=== PATIENT | male | born 1935 | race Caucasian/White ===

== ENCOUNTER 2024-02-16 23:36 | Inpatient (IN) | payer MEDICARE, SELFPAY ==
--- NOTE | ~2024-02-16 | CT_ITS ---
EXAMINATION: CT CERVICAL SPINE WITHOUT CONTRAST; UNENHANCED CT OF THE HEAD. CLINICAL INFORMATION: Fall. Altered mental status. COMPARISON: CT head 06/13/2016. MRI brain 06/13/2016. TECHNIQUE: Routine unenhanced CT of the head with multiple coronal and sagittal reformatted images; routine unenhanced CT of the cervical spine with multiple coronal and sagittal reformatted images. This CT examination was performed using dose optimization techniques as appropriate, variously including the following: *Automated exposure control *Adjustment of mA and/or kV according to patient size (this includes techniques or standardized protocols for targeted exams where dose is matched to indication/reason for exam; i.e. extremities or head) *Use of iterative reconstruction technique DLP: 1514 mGy-cm FINDINGS: CT head: No intracranial hemorrhage, tumors or acute infarcts identified. Moderate diffuse symmetric prominence of ventricles and sulci. Confluent subcortical and periventricular white matter patchy hypodensities. Bilateral ocular lens replacements. No extra cranial soft tissue inflammatory changes. No significant opacification of the visualized paranasal sinuses, mastoid air cells and middle ear cavities. CT cervical spine: Diffuse osteopenia. Moderate multilevel facet hypertrophic changes. No fractures or acute-appearing subluxations. No prevertebral fluid or soft tissue inflammatory changes. Right internal carotid artery stent noted. Dense bilateral carotid bulb calcific atherosclerosis. Visualized lung apices are clear. CT/CT cervical spine wo IV con IMPRESSION: CT HEAD: 1. No acute intracranial abnormalities. 2. Moderate diffuse parenchymal volume loss the brain and advanced chronic microangiopathic ischemic changes. CT CERVICAL SPINE: 1. No acute abnormalities. 2. Diffuse osteopenia. 3. Right internal carotid artery stent in situ. Electronically signed by: Ronald Loza MD 02/17/2024 01:26 AM [facility]
--- NOTE | ~2024-02-16 | XR_ITS ---
EXAMINATION: XR CHEST 1 VIEW, XR HIP 2 OR MORE VIEWS BILATERAL CLINICAL INFORMATION: sob fall. COMPARISON: Chest 06/13/2016. TECHNIQUE: AP pelvis, repeat AP pelvis, AP and lateral radiographs of the left and right hips; AP and repeat AP radiographs of the chest. FINDINGS: Chest: Multiple external artifacts overlie the thorax. No focal pulmonary consolidation. No effusions or pneumothoraces identified. Normal pattern of pulmonary vasculature. Partial visualization is made of a vascular stents possibly related to the abdominal aorta. No effusions or pneumothoraces identified. No displaced rib Hips and pelvis: Images are suboptimal secondary to underpenetrated technique. Diffuse vascular calcifications are identified. Visualized pelvis appears intact. The sacrum appears intact. Partial visualization is made of the distal portions of a presumed aortobifemoral stent graft. Visualized pelvis appears intact. Visualized hips appear intact. XR/XR chest 1V IMPRESSION: Chest: No acute cardiopulmonary abnormalities. Hips and pelvis: 1. Partially visualized aortobifemoral stent graft. 2. Diffuse vascular calcifications. 3. No acute abnormalities identified. Electronically signed by: Ronald Loza MD 02/17/2024 02:07 AM [facility]
--- NOTE | ~2024-02-16 | US_ITS ---
EXAMINATION: US TRIPLEX UPPER EXTREMITY, RIGHT CLINICAL INFORMATION: Swelling and pain. COMPARISON: None available. TECHNIQUE: Color-flow triplex imaging with spectral analysis and compression Doppler was performed on the right upper extremity. FINDINGS: *Occlusive thrombus is noted within the proximal segment of the right basilic vein. This region demonstrates no measurable flow on spectral and color Doppler interrogation and is incompressible. *Occlusive thrombus is noted within the cephalic vein adjacent to the proximal humerus with no measurable color and spectral flow. Normal color, grayscale and spectral flow is noted elsewhere within the left upper extremity and within the left internal jugular vein. No abnormal soft tissue fluid collections identified. No soft tissue inflammatory changes noted. US/US venous duplex UE RT IMPRESSION: Right upper extremity venous ultrasonography positive for deep venous thrombosis. Occlusive thrombus within the proximal right basilic vein and proximal right cephalic vein. Normal appearance of the visualized left internal jugular vein. This critical result was discussed with Carolyn Larkin MD MD by telephone at 02/17/2024 3:21 AM EST and it was ascertained that the content and urgency of the report was understood at the time of direct communication. Electronically signed by: Ronald Loza MD 02/17/2024 03:22 AM EST
--- NOTE | ~2024-02-16 | CT_ITS ---
EXAMINATION: CT CERVICAL SPINE WITHOUT CONTRAST; UNENHANCED CT OF THE HEAD. CLINICAL INFORMATION: Fall. Altered mental status. COMPARISON: CT head 06/13/2016. MRI brain 06/13/2016. TECHNIQUE: Routine unenhanced CT of the head with multiple coronal and sagittal reformatted images; routine unenhanced CT of the cervical spine with multiple coronal and sagittal reformatted images. This CT examination was performed using dose optimization techniques as appropriate, variously including the following: *Automated exposure control *Adjustment of mA and/or kV according to patient size (this includes techniques or standardized protocols for targeted exams where dose is matched to indication/reason for exam; i.e. extremities or head) *Use of iterative reconstruction technique DLP: 1514 mGy-cm FINDINGS: CT head: No intracranial hemorrhage, tumors or acute infarcts identified. Moderate diffuse symmetric prominence of ventricles and sulci. Confluent subcortical and periventricular white matter patchy hypodensities. Bilateral ocular lens replacements. No extra cranial soft tissue inflammatory changes. No significant opacification of the visualized paranasal sinuses, mastoid air cells and middle ear cavities. CT cervical spine: Diffuse osteopenia. Moderate multilevel facet hypertrophic changes. No fractures or acute-appearing subluxations. No prevertebral fluid or soft tissue inflammatory changes. Right internal carotid artery stent noted. Dense bilateral carotid bulb calcific atherosclerosis. Visualized lung apices are clear. CT/CT head/brain wo IV con IMPRESSION: CT HEAD: 1. No acute intracranial abnormalities. 2. Moderate diffuse parenchymal volume loss the brain and advanced chronic microangiopathic ischemic changes. CT CERVICAL SPINE: 1. No acute abnormalities. 2. Diffuse osteopenia. 3. Right internal carotid artery stent in situ. Electronically signed by: Ronald Loza MD 02/17/2024 01:26 AM EST
--- NOTE | ~2024-02-16 | XR_ITS ---
EXAMINATION: XR CHEST CLINICAL INFORMATION: change of status - COMPARISON: X-ray dated February 17, 2024 TECHNIQUE: Frontal view of the chest was obtained. FINDINGS: Limited due to patient's positioning with cardiomediastinal silhouette overlapping the left hemithorax. No gross consolidation pleural effusion or pneumothorax. Calcified plaque aortic arch. Multilevel thoracic spondylosis. Osteopenia versus osteoporosis. XR/XR chest 1V IMPRESSION: Limited without acute airspace disease. Electronically signed by: Ricki Gusman MD 02/22/2024 09:53 AM [facility] IVE[facility]
--- NOTE | ~2024-02-16 | XR_ITS ---
EXAMINATION: XR CHEST 1 VIEW, XR HIP 2 OR MORE VIEWS BILATERAL CLINICAL INFORMATION: sob fall. COMPARISON: Chest 06/13/2016. TECHNIQUE: AP pelvis, repeat AP pelvis, AP and lateral radiographs of the left and right hips; AP and repeat AP radiographs of the chest. FINDINGS: Chest: Multiple external artifacts overlie the thorax. No focal pulmonary consolidation. No effusions or pneumothoraces identified. Normal pattern of pulmonary vasculature. Partial visualization is made of a vascular stents possibly related to the abdominal aorta. No effusions or pneumothoraces identified. No displaced rib Hips and pelvis: Images are suboptimal secondary to underpenetrated technique. Diffuse vascular calcifications are identified. Visualized pelvis appears intact. The sacrum appears intact. Partial visualization is made of the distal portions of a presumed aortobifemoral stent graft. Visualized pelvis appears intact. Visualized hips appear intact. XR/XR hips GALO min 3V IMPRESSION: Chest: No acute cardiopulmonary abnormalities. Hips and pelvis: 1. Partially visualized aortobifemoral stent graft. 2. Diffuse vascular calcifications. 3. No acute abnormalities identified. Electronically signed by: Ronald Loza MD 02/17/2024 02:07 AM [facility]
--- NOTE | ~2024-02-16 | US_ITS ---
EXAMINATION: US RETROPERITONEAL COMPLETE (RENAL) CLINICAL INFORMATION: Hematuria. COMPARISON: None available. TECHNIQUE: Real-time imaging of the kidneys and bladder. FINDINGS: RIGHT KIDNEY: 8.4 x 4.7 x 4 cm (SAG x AP x TRV). The right kidney is normal in size and contour. Increased parenchymal echogenicity. Renal cortical thinning. No calculi or focal parenchymal lesions. No hydronephrosis. LEFT KIDNEY: 10.5 x 5.2 x 3.9 cm (SAG x AP x TRV). The left kidney is normal in size and contour. Increased parenchymal echogenicity. Renal cortical thinning. No calculi or focal parenchymal lesions. No hydronephrosis. BLADDER: Well distended and normal. Bilateral ureteral jets are not demonstrated. Prevoid bladder volume is 670 mL. Postvoid bladder volume is 476.7 mL. Partially visualized prostate. US/US retroperitoneal comp IMPRESSION: 1. Increased renal parenchymal echogenicity and renal cortical thinning, which can be seen in the setting of medical renal disease. No hydronephrosis or nephrolithiasis. 2. Sonographically unremarkable urinary bladder. Postvoid residual of 476.7 mL. Electronically signed by: Waylon Thomas MD 02/21/2024 09:44 AM EST
--- NOTE | 2024-02-16 23:39 | ECG_ITS ---
Test Reason : FALL Blood Pressure : / mmHG Vent. Rate : 122 BPM Atrial Rate : 000 BPM P-R Int : 000 ms QRS Dur : 112 ms QT Int : 340 ms P-R-T Axes : 000 263 024 degrees QTc Int : 484 ms Atrial flutter with variable block Right bundle branch block Inferior infarct , age undetermined Abnormal ECG When compared with ECG of 13-JUN-2016 05:19, Atrial flutter has replaced Sinus rhythm Vent. rate has increased BY 58 BPM Right bundle branch block is now Present Inferior infarct is now Present Referred By: Generic ED Physician Electronically Signed By:West Fang
[2024-02-16 23:54] VITALS: BP 103/71; PULSE 126; O2SAT 90; BMI 29.8
[2024-02-17] VITALS (14 sets, daily range): BP systolic 125–188; BP diastolic 69–95; PULSE 83–116; RESP 17–36; TEMP 36–37.2; O2SAT 91–97; BMI 32.2
[2024-02-17] MEDS: Albuterol Sulfate (0.083%) 2.5 MG/3 ML VIAL.NEB 10 MG INHALE (00:08)
--- NOTE | 2024-02-17 00:08 | ED_ITS ---
HPI - General Adult General Chief complaint: General Medical Stated complaint: unwit fall?, A&O=0 combative, Time Seen by Provider: 02/16/24 23:56 Source: EMS Mode of arrival: EMS Limitations: other (Hard of hearing, dementia) History of Present Illness ED Provider: Dr. Carolyn Larkin HPI narrative: Patient comes to the emergency room via ambulance from home. According to EMS, the family called 911 for a wellness check for the patient. The last time that patient was seen well was over 2 days ago. Seems that patient has history of dementia. When EMS arrived with fire department to the patient's house, they had to break the door open to get to the patient. Patient was found on the floor beside his wheelchair. Patient is very hard of hearing and has altered mental status, unclear how long he has been on the floor. Patient is very hard of hearing and can not answer any questions. Patient can not answer questions about his past medical history. Per EMS, there were no medications at home and there was no list of meds. Unknown past medical history, possible dementia. Related Data Allergies Allergy/AdvReac Type Severity Reaction Status Date / Time penicillin V Allergy Unknown Unknown Verified 02/17/24 00:00 Penicillins [PENICILLINS] Allergy Unknown UNKNOWN Verified 02/17/24 00:00 Review of Systems 2 Review of Systems: Yes Unobtainable due to mental status PMFSH Social History Social History Unable to assess alcohol history related to: Unknown Smoked in Last 30 Days: No Use of substances other than those prescribed or required for medical reasons: Unknown Advance Directives: No Advance Directives Information Provided: Yes Do you have a plan to hurt others: No Plan Physical Exam ED Vital Signs: Vital Signs - 24 hr 02/17/24 00:09 02/17/24 00:17 02/17/24 00:22 Temperature 98.1 F 98.9 F Pulse Rate 112 H 116 H Respiratory Rate 34 H 36 H Blood Pressure 125/87 Pulse Oximetry 91 L Oxygen Delivery Method Room Air Oxygen Flow Rate 02/17/24 01:06 Temperature Pulse Rate 95 Respiratory Rate 20 Blood Pressure 148/83 H Pulse Oximetry 96 Oxygen Delivery Method Nasal Cannula Oxygen Flow Rate 2 BMI result Body Mass Index 29.8 Const Other: Appearance: Alert. Oriented X1. Disheveled, strong smell of urine Eyes: Pupils equal, round and reactive to light. ENT: Pharynx normal. Neck: Normal inspection. Neck supple. No lymph nodes noted. No crepitus CVS: Normal heart rate and rhythm. Pulses normal. Normal S1 and S2 Respiratory: No respiratory distress. Bilateral wheezing Abdomen: Soft and nontender. No rigidity. No distention. Skin: Multiple bruises worse in the upper extremities Extremities: Right upper extremity is swollen, ecchymosis, +3 edema Neuro: CN 2 through 12 grossly intact Psych: calm, anxious Course Course Course Narrative: All of patient's labs and imaging pending. -patient is wheezing quite a bit, patient receiving albuterol, steroids. -also, patient noted on EKG that he is in atrial fibrillation with RVR. Unknown if patient is on any blood thinners. -our system is not linked to any of the patient's pharmacy, unknown which medication patient takes Medications Administered Generic Name Dose Route Start Last Admin Trade Name Freq PRN Reason Stop Dose Admin Sodium Chloride 2,000 mls @ 999 mls/hr 02/17/24 01:48 02/17/24 02:10 Ns IVCONT 02/17/24 03:48 999 mls/hr .Q2H1M ONE Administration Discontinued Medications Generic Name Dose Route Start Last Admin Trade Name Freq PRN Reason Stop Dose Admin Albuterol Sulfate 10 mg 02/17/24 00:02 02/17/24 00:08 Albuterol Sulfate (0.083%) 2.5 Mg/3 Ml Vial.Neb INHALE 02/17/24 00:03 10 mg ONCE ONE Administration Ceftriaxone Sodium 1 gm 02/17/24 01:48 02/17/24 02:09 Ceftriaxone Sodium 1 Gm Vial IVPUSH 02/17/24 01:49 1 gm ONCE ONE Administration Sodium Chloride 1,000 mls @ 999 mls/hr 02/17/24 00:03 02/17/24 02:10 Ns IVCONT 02/17/24 01:03 Infused .Q1H1M ONE Infusion Methylprednisolone Sodium Succinate 125 mg 02/17/24 00:02 02/17/24 01:01 Methylprednisolone Sod Succ 125 Mg/2 Ml Vial IVPUSH 02/17/24 00:03 125 mg ONCE ONE Administration Metoprolol Tartrate 5 mg 02/17/24 00:08 02/17/24 01:01 Metoprolol Tartrate 5 Mg/5 Ml Vial IVPUSH 02/17/24 00:09 5 mg ONCE ONE Administration Protocol Medical Decision Making Medical Decision Making [facility] Narrative: My interpretation of EKG: Atrial fibrillation with RVR, heart rate 122, no ST changes, QTC 484 -my interpretation of labs. Patient's hemoglobin 18.1, hematocrit 52.6, patient likely dehydrated. Patient's kidney 1.81, unclear if this is new or not. Lactic acid 3.3. Patient is likely dehydrated. -troponin 41.7, likely secondary to being in AFib -patient received 5 mg of IV metoprolol, patient's heart rate decreased to 79, blood pressure 152/64. Unclear if patient has history of AFib. -ultrasound shows a DVT in the cephalic and basilic vein. Patient was given IV heparin. -head CT and neck CT do not show any acute abnormality -DVT study for right upper extremity positive for deep venous thrombosis, occlusive thrombus in the right basilic vein and proximal right cephalic vein -chest x-ray no acute abnormality -hips and pelvis x-ray no acute abnormalities -patient is being admitted, discussed the patient with Dr. Ramirez Differential Diagnosis Differential Diagnoses: The differential diagnosis associated with the presentation includes (Mechanical fall, atrial fibrillation, ACS, UTI) Admission/Observation Consideration of admission/observation: Escalation of care including admission/observation considered (Given patient's initial presentation and lack of medical history, patient will be admitted) Consult Healthcare Provider Management of the patient was discussed with: Hospitalist Lab Data [facility] Lab Attestation statement: I reviewed the patient's lab results. 02/17/24 00:15 02/17/24 00:15 Labs: Lab Results 02/17/24 02/17/24 02/17/24 Range/Units 00:15 00:23 00:54 WBC 10.5 (4.8-10.8) X10*3/uL RBC 5.33 (4.60-5.80) X10*6/uL Hgb 18.1 H (14.0-18.0) g/dl Hct 52.6 H (42.0-52.0) % MCV 98.7 H (80.0-98.0) fL MCH 34.0 H (27.0-33.0) pg MCHC 34.4 (31.0-36.0) g/dl RDW 15.5 (11.0-16.0) % Plt Count 256 (160-400) X10*3/uL MPV 10.0 (9.4-12.4) fL Immature Gran % (Auto) 0.6 H (0.0-0.4) % Neut % (Auto) 66.8 (45-73) % Lymph % (Auto) 18.3 L (20-40) % Harris % (Auto) 13.4 H (2-11) % Eos % (Auto) 0.5 (0-4) % Baso % (Auto) 0.4 (0-2) % Lymph # (Auto) 1.9 (1.2-4.9) X10*3/uL Harris # (Auto) 1.4 H (0.1-1.2) X10*3/uL Eos # (Auto) 0.1 (0.0-0.4) X10*3/uL Baso # (Auto) 0.0 (0.0-0.2) X10*3/uL Abs Immat Gran (auto) 0.06 H (0.00-0.03) X10*3/uL Absolute Neuts (auto) 7.0 (2.0-8.3) x10*3/uL Absolute Nucleated RBC 0.000 (0.0-0.012) X10*3/uL Nucleated RBC % (auto) 0.0 (0.0-0.2) /100WBC PT 13.4 H (10.9-12.4) SEC INR 1.2 H (0.9-1.1) APTT 28.8 (26.0-36.8) SEC VBG pH 7.33 (7.32-7.43) VBG pCO2 45 mmHg VBG pO2 42 mmHg VBG HCO3 24 (22-26) mmol/L VBG O2 Saturation 62.0 % VBG Base Excess -2.0 mmol/L Sodium 146 H (135-145) mmol/L Potassium 4.8 (3.3-5.1) mmol/L Chloride 108 (96-108) mmol/L Carbon Dioxide 23 (22-29) mmol/L Anion Gap 20 (12-20) BUN 48 H (9-16) mg/dL Creatinine 1.81 H (0.5-1.4) mg/dL Estim Creat Clear Calc 34.4 Estimated GFR 36 Random Glucose 161 H (60-115) mg/dL Lactic Acid 3.3 H* (0.5-2.0) mmol/L Lactic Acid F/U @ 2Hr (0.5-2.0) mmol/L Calcium 10.2 (8.4-10.2) mg/dL Magnesium 2.1 (1.6-2.6) mg/dL Total Bilirubin 1.2 H (0.0-1.0) mg/dL Direct Bilirubin 0.5 (0.0-0.5) mg/dL AST 49 H (5-37) U/L ALT 19 (0-40) U/L Alkaline Phosphatase 91 (39-117) U/L Ammonia 33 (13-55) umol/L Total Creatine Kinase 597 H (38-174) U/L Troponin I High Sens 41.7 H (<3.5-35.0) ng/L B-Natriuretic Peptide 46 (<100) pg/mL Total Protein 7.7 (6.5-8.0) g/dL Albumin 3.7 (3.5-5.0) g/dL Lipase 12 (8-78) U/L TSH 1.23 (0.32-4.0) uIU/mL Urine Color Yellow Urine Appearance Turbid Urine pH 5.5 (5.0-9.0) Ur Specific [place] 1.015 (1.005-1.025) Urine Protein 100 (2+) H (Neg-Trace) mg/dL Urine Glucose (UA) Negative (Negative) mg/dL Urine Ketones 15 (Negative) mg/dL Urine Blood Large (3+) H (Negative) Urine Nitrite Positive H (Negative) Ur Leukocyte Esterase Large (3+) H (Negative) Urine RBC >20 H (0-2) /HPF Urine WBC >50 H (0-5) /HPF Ur Squamous Epith Cells 0-2 (0-2) /HPF Urine Bacteria 4+ (None Seen) Hyaline Casts 0-2 (0-2) /LPF Urine Opiates Screen Not Detected (Not Detect) Ur Buprenorphine Scrn Not Detected (Not Detect) ng/mL Ur Oxycodone Screen Not Detected (Not Detect) ng/mL Urine Methadone Screen Not Detected (Not Detect) ng/mL Urine Fentanyl Screen Not Detected (Not Detect) Ur Barbiturates Screen Not Detected (Not Detect) Ur Phencyclidine Scrn Not Detected (Not Detect) Ur Amphetamines Screen Not Detected (Not Detect) U Benzodiazepines Scrn Not Detected (Not Detect) Urine Cocaine Screen Not Detected (Not Detect) U Marijuana (THC) Screen Not Detected (Not Detect) Ethyl Alcohol < 10 mg/dL COVID-19 ([facility]) Negative (Negative) COVID-19 Clin Com See Note 02/17/24 Range/Units 03:12 WBC (4.8-10.8) X10*3/uL RBC (4.60-5.80) X10*6/uL Hgb (14.0-18.0) g/dl Hct (42.0-52.0) % MCV (80.0-98.0) fL MCH (27.0-33.0) pg MCHC (31.0-36.0) g/dl RDW (11.0-16.0) % Plt Count (160-400) X10*3/uL MPV (9.4-12.4) fL Immature Gran % (Auto) (0.0-0.4) % Neut % (Auto) (45-73) % Lymph % (Auto) (20-40) % Harris % (Auto) (2-11) % Eos % (Auto) (0-4) % Baso % (Auto) (0-2) % Lymph # (Auto) (1.2-4.9) X10*3/uL Harris # (Auto) (0.1-1.2) X10*3/uL Eos # (Auto) (0.0-0.4) X10*3/uL Baso # (Auto) (0.0-0.2) X10*3/uL Abs Immat Gran (auto) (0.00-0.03) X10*3/uL Absolute Neuts (auto) (2.0-8.3) x10*3/uL Absolute Nucleated RBC (0.0-0.012) X10*3/uL Nucleated RBC % (auto) (0.0-0.2) /100WBC PT (10.9-12.4) SEC INR (0.9-1.1) APTT (26.0-36.8) SEC VBG pH (7.32-7.43) VBG pCO2 mmHg VBG pO2 mmHg VBG HCO3 (22-26) mmol/L VBG O2 Saturation % VBG Base Excess mmol/L Sodium (135-145) mmol/L Potassium (3.3-5.1) mmol/L Chloride (96-108) mmol/L Carbon Dioxide (22-29) mmol/L Anion Gap (12-20) BUN (9-16) mg/dL Creatinine (0.5-1.4) mg/dL Estim Creat Clear Calc Estimated GFR Random Glucose (60-115) mg/dL Lactic Acid (0.5-2.0) mmol/L Lactic Acid F/U @ 2Hr 3.7 H* (0.5-2.0) mmol/L Calcium (8.4-10.2) mg/dL Magnesium (1.6-2.6) mg/dL Total Bilirubin (0.0-1.0) mg/dL Direct Bilirubin (0.0-0.5) mg/dL AST (5-37) U/L ALT (0-40) U/L Alkaline Phosphatase (39-117) U/L Ammonia (13-55) umol/L Total Creatine Kinase (38-174) U/L Troponin I High Sens (<3.5-35.0) ng/L B-Natriuretic Peptide (<100) pg/mL Total Protein (6.5-8.0) g/dL Albumin (3.5-5.0) g/dL Lipase (8-78) U/L TSH (0.32-4.0) uIU/mL Urine Color Urine Appearance Urine pH (5.0-9.0) Ur Specific [place] (1.005-1.025) Urine Protein (Neg-Trace) mg/dL Urine Glucose (UA) (Negative) mg/dL Urine Ketones (Negative) mg/dL Urine Blood (Negative) Urine Nitrite (Negative) Ur Leukocyte Esterase (Negative) Urine RBC (0-2) /HPF Urine WBC (0-5) /HPF Ur Squamous Epith Cells (0-2) /HPF Urine Bacteria (None Seen) Hyaline Casts (0-2) /LPF Urine Opiates Screen (Not Detect) Ur Buprenorphine Scrn (Not Detect) ng/mL Ur Oxycodone Screen (Not Detect) ng/mL Urine Methadone Screen (Not Detect) ng/mL Urine Fentanyl Screen (Not Detect) Ur Barbiturates Screen (Not Detect) Ur Phencyclidine Scrn (Not Detect) Ur Amphetamines Screen (Not Detect) U Benzodiazepines Scrn (Not Detect) Urine Cocaine Screen (Not Detect) U Marijuana (THC) Screen (Not Detect) Ethyl Alcohol mg/dL COVID-19 ([facility]) (Negative) COVID-19 Clin Com Independent Interpretation I performed an independent interpretation of an: EKG, Ultrasound and CT Scan Radiology Impression Discussion of test interpretation with radiology: I have reviewed the radiologist's reading. Radiologist Impression: CT head: No intracranial hemorrhage, tumors or acute infarcts identified. Moderate diffuse symmetric prominence of ventricles and sulci. Confluent subcortical and periventricular white matter patchy hypodensities. Bilateral ocular lens replacements. No extra cranial soft tissue inflammatory changes. No significant opacification of the visualized paranasal sinuses, mastoid air cells and middle ear cavities. CT cervical spine: Diffuse osteopenia. Moderate multilevel facet hypertrophic changes. No fractures or acute-appearing subluxations. No prevertebral fluid or soft tissue inflammatory changes. Right internal carotid artery stent noted. Dense bilateral carotid bulb calcific atherosclerosis. Visualized lung apices are clear. Right upper extremity venous ultrasonography positive for deep venous thrombosis. Occlusive thrombus within the proximal right basilic vein and proximal right cephalic vein. Normal appearance of the visualized left internal jugular vein. This critical result was discussed with Carolyn Larkin MD MD by telephone at 02/17/2024 3:21 AM EST and it was ascertained that the content and urgency of the report was understood at the time of direct communication. Chest: No acute cardiopulmonary abnormalities. Hips and pelvis: 1. Partially visualized aortobifemoral stent graft. 2. Diffuse vascular calcifications. 3. No acute abnormalities identifie Independent Historian Clinical information obtained from an independent historian. History obtained from or confirmed by: EMS Critical Care Time Critical Care Time Critical Care Time: Yes Total Critical Care Time: 75 Attestation: I have personally provided critical care time. Time includes review of lab data, radiology results, discussion with consultants, and monitoring for potential decompensation. Intervention performed as documented. Discharge Plan Discharge Clinical Impression: Atrial fibrillation with RVR, Acute UTI, Acute deep vein thrombosis (DVT) of right upper extremity, JOSE ALFREDO (acute kidney injury) Patient Disposition: Admitted As Inpatient Print Language: Serbian
[2024-02-17] MEDS: 0.9 % Sodium Chloride 1,000 ML 999 ML IVCONT (00:19)
[2024-02-17 00:21] LABS: MANUAL DIFF FLAG NO
[2024-02-17 00:23] LABS: Venous Blood Gas Refer to POC result
[2024-02-17 00:23] LABS: Basophils Percent Auto 0.4 % (0-2); Eosinophils Absolute Auto 0.1 X10*3/uL (0.0-0.4); Eosinophils Percent Auto 0.5 % (0-4); Hematocrit 52.6 % (42.0-52.0); Hemoglobin 18.1 g/dl (14.0-18.0); Imm Gran Abs Auto 0.06 X10*3/uL (0.00-0.03); Imm Gran Pct Auto 0.6 % (0.0-0.4); Lymphocytes Absolute Auto 1.9 X10*3/uL (1.2-4.9); Lymphocytes Percent Auto 18.3 % (20-40); Mean Corpuscular HGB Conc 34.4 g/dl (31.0-36.0); Mean Corpuscular Volume 98.7 fL (80.0-98.0); Monocytes Absolute Auto 1.4 X10*3/uL (0.1-1.2); Monocytes Percent Auto 13.4 % (2-11); Neutrophils Percent Auto 66.8 % (45-73); Platelet Count 256 X10*3/uL (160-400); Red Blood Count 5.33 X10*6/uL (4.60-5.80); Red Cell Distribution Width 15.5 % (11.0-16.0); White Blood Count 10.5 X10*3/uL (4.8-10.8)
[2024-02-17 00:27] LABS: VBG HCO3 24 mmol/L (22-26); VBG pCO2 45 mmHg; VBG pH 7.33 (7.32-7.43); VBG pO2 42 mmHg
[2024-02-17 00:28] LABS: INTERNATIONAL NORM RATIO 1.2 (0.9-1.1); Prothrombin Time 13.4 SEC (10.9-12.4)
[2024-02-17 00:30] LABS: Ammonia 33 umol/L (13-55)
[2024-02-17 00:40] LABS: Lactic Acid 3.3 mmol/L (0.5-2.0)
[2024-02-17 00:44] LABS: Troponin-I High Sensitivity 41.7 ng/L (<3.5-35.0)
[2024-02-17 00:45] LABS: B Type Natriuretic Peptide 46 pg/mL (<100)
[2024-02-17 00:48] LABS: Alanine Aminotransferase 19 U/L (0-40); Albumin Level 3.7 g/dL (3.5-5.0); Alkaline Phosphatase 91 U/L (39-117); Anion Gap 20 (12-20); Aspartate Amino Transferase 49 U/L (5-37); Bilirubin Direct 0.5 mg/dL (0.0-0.5); Bilirubin Total 1.2 mg/dL (0.0-1.0); Blood Urea Nitrogen 48 mg/dL (9-16); Calcium 10.2 mg/dL (8.4-10.2); Carbon Dioxide 23 mmol/L (22-29); Chloride 108 mmol/L (96-108); Creatinine Clr Calc Pharmacy 34.4; Estimated Glomerular Filt Rate 36; Ethanol < 10 mg/dL; Glucose Random 161 mg/dL (60-115); Lipase 12 U/L (8-78); Magnesium 2.1 mg/dL (1.6-2.6); Potassium 4.8 mmol/L (3.3-5.1); Sodium 146 mmol/L (135-145); Total Protein 7.7 g/dL (6.5-8.0)
[2024-02-17 01:00] LABS: COVID-19 Test Negative (Negative); IDNOW Serial# 6674DD1D
[2024-02-17 01:01] LABS: Appearance Urine Turbid; Color Urine Yellow; Glucose Urine UA Negative (Negative); Leukocyte Esterase Urine Large (3+) (Negative); Nitrite Urine Positive (Negative); PH 5.5 (5.0-9.0); Specific Gravity - Urine 1.015 (1.005-1.025); UMIC TRIGGER UACC YES; Urine Blood Large (3+) (Negative); Urine Ketones 15 mg/dL (Negative); Urine Protein 100 (2+) mg/dL (Neg-Trace)
[2024-02-17 01:01] LABS: TSH reflex Free T4 1.23 uIU/mL (0.32-4.0)
[2024-02-17] MEDS: methylPREDNISolone Sod Succ 125 MG/2 ML VIAL IVPUSH (01:01)
[2024-02-17] MEDS: Metoprolol Tartrate 5 MG/5 ML VIAL IVPUSH (01:01)
[2024-02-17 01:06] LABS: Bacteria Urine 4+ (None Seen); Hyaline Casts Urine 0-2 /LPF (0-2); RBC Urine >20 /HPF (0-2); Squamous Epithelial Cell Urine 0-2 /HPF (0-2); UACC Culture Trigger YES; WBC Urine >50 /HPF (0-5)
[2024-02-17 01:17] LABS: Amphetamine Screen Urine Not Detected (Not Detect); Barbiturates, Urine Not Detected (Not Detect); Benzodiazepines Screen Urine Not Detected (Not Detect); Buprenorphine Scr Not Detected (Not Detect); Cannabinoid Screen Urine Not Detected (Not Detect); Cocaine Screen Urine Not Detected (Not Detect); Fentanyl, urine Not Detected (Not Detect); Methadone Screen, Urine Not Detected (Not Detect); Opiate Screen Urine Not Detected (Not Detect); Oxycodone Screen Urine Not Detected (Not Detect); Phencyclidine Screen Urine Not Detected (Not Detect)
[2024-02-17] MEDS: cefTRIAXone sodium 1 GM VIAL IVPUSH ×2 (02:09→20:26)
[2024-02-17] MEDS: 0.9 % Sodium Chloride 2,000 ML 999 ML IVCONT (02:10)
[2024-02-17 02:19] LABS: Reflex Lactate? Lactic Acid Added
[2024-02-17 03:32] LABS: Partial Thromboplastin Time 28.8 SEC (26.0-36.8)
[2024-02-17 03:36] LABS: ~Lactic Acid-LAB USE ONLY 3.7 mmol/L (0.5-2.0)
[2024-02-17] MEDS: Heparin Sodium,Porcine/1/2NS 25,000 UNIT/250 ML IV.SOLN 13.96 UNIT IVCONT ×2 (03:59→20:34)
[2024-02-17 05:16] LABS: Reflex Lactate? 2 Y
--- NOTE | 2024-02-17 05:19 | P.HPHOSP_ITS ---
History of Present Illness Date of Service: 02/17/24 Attending physician on admission: Josué Guy Chief Complaint: Fall Nikita Hays is 88 years old man with past medical history significant for dementia was brought to the ED after his family contacted 911 for a wellness check. The patient well was seen for the last time 2 days ago. Upon entering patient's home it was noted that the patient was lying on the floor and confused. The down time is unclear. Other past medical history is unknown and unclear if patient takes medications everyday. Likely history of PVD as aortic femoral stent noted on hip x-ray. His right arm was noted to be swollen. In the ED, he was found to have tachycardia consistent with rapid AFib. He was also found to have a degree of tachypnea. Other vital signs are normal. It seems like he was placed on supplemental oxygen via nasal cannula for comfort. Blood workup showed no leukocytosis. There is lactic acidosis of 3.3 --> 3.7. Hemoglobin is 18.1 and platelets 256. INR is 1.2. There is mild hypernatremia, 146. No other electrolyte imbalances noted. Total CK is 597. BNP is normal, as well as albumin, lipase and TSH. Urinalysis consistent with UTI. Urine drug screen is negative. ETOH level is < 10. COVID-19 test is negative. Head and C-spine CT scans are unremarkable. CXR is negative. Hip and pelvic x-ray showed partially visualized aortic be femoral stent graft. ED tx: Solu-Medrol 125 mg IV, DuoNeb 10 mg, NS 3 L bolus, metoprolol 5 mg IV, ceftriaxone 1 g IV Review of Systems 2 Review of Systems: Yes Unobtainable due to mental condition and Unobtainable due to mental status PMFSH Social History Unable to assess alcohol history related to: Unknown Smoked in Last 30 Days: No Use of substances other than those prescribed or required for medical reasons: Unknown Advance Directives: No Advance Directives Information Provided: Yes Do you have a plan to hurt others: No Plan Meds Allergies Allergy/AdvReac Type Severity Reaction Status Date / Time penicillin V Allergy Unknown Unknown Verified 02/17/24 00:00 Penicillins [PENICILLINS] Allergy Unknown UNKNOWN Verified 02/17/24 00:00 Active Medications: Current Medications Acetaminophen (Acetaminophen 325 Mg Tablet) 975 mg PO Q6H PRN PRN Reason: Pain, Mild (Pain Scale 1-3), fever or headache Ceftriaxone Sodium (Ceftriaxone Sodium 1 Gm Vial) 1 gm IVPUSH Q24H [facility] Heparin Sodium/Sodium Chloride (Heparin Sodium,Porcine/1/2ns) 25,000 unit in 250 mls @ 0 mls/hr IVCONT .Q0M [facility]; Protocol Last Admin: 02/17/24 03:59 Dose: 14 units/kg/hr, 13.96 mls/hr Dextrose/Sodium Chloride (D51/2ns) 1,000 mls @ 100 mls/hr IVCONT .Q10H [facility] Stop: 02/17/24 15:14 Levalbuterol HCl (Levalbuterol Hcl 1.25 Mg/3 Ml Vial.Neb) 1.25 mg INHALE Q3H PRN PRN Reason: Wheezing Melatonin (Melatonin 3 Mg Tablet) 6 mg PO BEDTIME PRN PRN Reason: Insomnia Metoprolol Tartrate (Metoprolol Tartrate 12.5 Mg Halftab) 12.5 mg PO BID [facility]; Protocol Sodium Chloride (0.9 % Sodium Chloride Flush 3 Ml Syringe) 3 ml IVFLUSH QSHIFT [facility] Physical Exam 2 Vital Signs and Narrative: Vital Signs: Last Vital Signs Temp 97.8 F 02/17/24 04:23 Pulse 86 02/17/24 04:43 Resp 20 02/17/24 04:43 BP 137/95 H 02/17/24 04:43 Pulse Ox 96 02/17/24 04:43 O2 Del Method Nasal Cannula 02/17/24 04:43 O2 Flow Rate 2 02/17/24 04:43 BMI result Body Mass Index 29.8 Constitutional - Sleeping, easily awakened. No distress. Nasal cannula in place. HEENT - PERRL, EOMI. Normal sclerae. Dry oral mucosa. Heart - Irregular rhythm. Normal rate. No murmurs. Lungs - Normal lung expansion, Normal respiratory effort, No respiratory distress, CTA bilaterally Abdomen - NT / ND; +BS; No rebound or guarding Extremities - Right upper erythema and edema. Distal pulses intact. Lower extremities are symmetrical Skin - Warm/Dry. No pallor. No jaundice. Neurological - Confused. No facial droop. No focal weakness grossly noted. Psychological - No agitation. Results Labs 02/17/24 00:15 02/17/24 00:15 Labs: Laboratory Results - last 24 hr 02/17/24 02/17/24 02/17/24 00:15 00:23 00:54 MCV 98.7 H MCH 34.0 H MCHC 34.4 RDW 15.5 Plt Count 256 MPV 10.0 Immature Gran % (Auto) 0.6 H Neut % (Auto) 66.8 Lymph % (Auto) 18.3 L Cataño % (Auto) 13.4 H Eos % (Auto) 0.5 Baso % (Auto) 0.4 Lymph # (Auto) 1.9 Cataño # (Auto) 1.4 H Eos # (Auto) 0.1 Baso # (Auto) 0.0 Abs Immat Gran (auto) 0.06 H Absolute Neuts (auto) 7.0 Absolute Nucleated RBC 0.000 Nucleated RBC % (auto) 0.0 PT 13.4 H INR 1.2 H APTT 28.8 VBG pH 7.33 VBG pCO2 45 VBG pO2 42 VBG HCO3 24 VBG O2 Saturation 62.0 VBG Base Excess -2.0 Anion Gap 20 Estim Creat Clear Calc 34.4 Estimated GFR 36 Random Glucose 161 H Lactic Acid 3.3 H* Lactic Acid F/U @ 2Hr Calcium 10.2 Magnesium 2.1 Total Bilirubin 1.2 H Direct Bilirubin 0.5 AST 49 H ALT 19 Alkaline Phosphatase 91 Ammonia 33 Total Creatine Kinase 597 H Troponin I High Sens 41.7 H B-Natriuretic Peptide 46 Total Protein 7.7 Albumin 3.7 Lipase 12 TSH 1.23 Urine Color Yellow Urine Appearance Turbid Urine pH 5.5 Ur Specific Mouthcard 1.015 Urine Protein 100 (2+) H Urine Glucose (UA) Negative Urine Ketones 15 Urine Blood Large (3+) H Urine Nitrite Positive H Ur Leukocyte Esterase Large (3+) H Urine RBC >20 H Urine WBC >50 H Ur Squamous Epith Cells 0-2 Urine Bacteria 4+ Hyaline Casts 0-2 Urine Opiates Screen Not Detected Ur Buprenorphine Scrn Not Detected Ur Oxycodone Screen Not Detected Urine Methadone Screen Not Detected Urine Fentanyl Screen Not Detected Ur Barbiturates Screen Not Detected Ur Phencyclidine Scrn Not Detected Ur Amphetamines Screen Not Detected U Benzodiazepines Scrn Not Detected Urine Cocaine Screen Not Detected U Marijuana (THC) Screen Not Detected Ethyl Alcohol < 10 COVID-19 ([facility]) Negative COVID-19 Clin Com See Note 02/17/24 03:12 MCV MCH MCHC RDW Plt Count MPV Immature Gran % (Auto) Neut % (Auto) Lymph % (Auto) Cataño % (Auto) Eos % (Auto) Baso % (Auto) Lymph # (Auto) Cataño # (Auto) Eos # (Auto) Baso # (Auto) Abs Immat Gran (auto) Absolute Neuts (auto) Absolute Nucleated RBC Nucleated RBC % (auto) PT INR APTT VBG pH VBG pCO2 VBG pO2 VBG HCO3 VBG O2 Saturation VBG Base Excess Anion Gap Estim Creat Clear Calc Estimated GFR Random Glucose Lactic Acid Lactic Acid F/U @ 2Hr 3.7 H* Calcium Magnesium Total Bilirubin Direct Bilirubin AST ALT Alkaline Phosphatase Ammonia Total Creatine Kinase Troponin I High Sens B-Natriuretic Peptide Total Protein Albumin Lipase TSH Urine Color Urine Appearance Urine pH Ur Specific Mouthcard Urine Protein Urine Glucose (UA) Urine Ketones Urine Blood Urine Nitrite Ur Leukocyte Esterase Urine RBC Urine WBC Ur Squamous Epith Cells Urine Bacteria Hyaline Casts Urine Opiates Screen Ur Buprenorphine Scrn Ur Oxycodone Screen Urine Methadone Screen Urine Fentanyl Screen Ur Barbiturates Screen Ur Phencyclidine Scrn Ur Amphetamines Screen U Benzodiazepines Scrn Urine Cocaine Screen U Marijuana (THC) Screen Ethyl Alcohol COVID-19 ([facility]) COVID-19 Clin Com Imaging Radiologist's Impressions: Impressions Cervical Spine CT 02/17/24 00:03 IMPRESSION: CT HEAD: 1. No acute intracranial abnormalities. 2. Moderate diffuse parenchymal volume loss the brain and advanced chronic microangiopathic ischemic changes. CT CERVICAL SPINE: 1. No acute abnormalities. 2. Diffuse osteopenia. 3. Right internal carotid artery stent in situ. Electronically signed by: Ronald Loza MD 02/17/2024 01:26 AM EST RP Hip X-Ray 02/17/24 00:03 IMPRESSION: Chest: No acute cardiopulmonary abnormalities. Hips and pelvis: 1. Partially visualized aortobifemoral stent graft. 2. Diffuse vascular calcifications. 3. No acute abnormalities identified. Electronically signed by: Ronald Loza MD 02/17/2024 02:07 AM EST RP Chest X-Ray 02/17/24 00:04 IMPRESSION: Chest: No acute cardiopulmonary abnormalities. Hips and pelvis: 1. Partially visualized aortobifemoral stent graft. 2. Diffuse vascular calcifications. 3. No acute abnormalities identified. Electronically signed by: Ronald Loza MD 02/17/2024 02:07 AM EST RP Head CT 02/17/24 01:00 IMPRESSION: CT HEAD: 1. No acute intracranial abnormalities. 2. Moderate diffuse parenchymal volume loss the brain and advanced chronic microangiopathic ischemic changes. CT CERVICAL SPINE: 1. No acute abnormalities. 2. Diffuse osteopenia. 3. Right internal carotid artery stent in situ. Electronically signed by: Ronald Loza MD 02/17/2024 01:26 AM EST RP Venous Duplex 02/17/24 01:48 IMPRESSION: Right upper extremity venous ultrasonography positive for deep venous thrombosis. Occlusive thrombus within the proximal right basilic vein and proximal right cephalic vein. Normal appearance of the visualized left internal jugular vein. This critical result was discussed with Carolyn Larkin MD MD by telephone at 02/17/2024 3:21 AM EST and it was ascertained that the content and urgency of the report was understood at the time of direct communication. Electronically signed by: Ronald Loza MD 02/17/2024 03:22 AM EST RP Assessment and Plan (1) JOSE ALFREDO (acute kidney injury): Status: Acute (2) Acute UTI: Status: Acute (3) Atrial fibrillation with RVR: Status: Acute (4) Acute deep vein thrombosis (DVT) of right upper extremity: Qualifiers: Affected thrombotic vein of extremity: unspecified vein of extremity Q ualified Code(s): I82.621 - Acute embolism and thrombosis of deep veins of right upper extremity Status: Acute Plan Nikita Hays is 88 y/o man with PMHx significant for dementia admitted with: * Acute kidney injury. Likely secondary to poor p.o. intake of fluids. Early rhabdomyolysis (total CK 597)? Medications? Admit to hospitalist service. Continue IV fluids. Continue to monitor total CK and renal function. Check phosphorus and uric acid. Avoid nephrotoxic agents. * Rapid AFib, now rate controlled. Receive metoprolol IV. Unclear if patient has underlying AFib. Continue heparin IV infusion. Start metoprolol tartrate 25 mg PO bid. Check TTE. * Hypernatremia, likely intake of free water. Continue IV fluids with D5. Continue to monitor Na+ level. * Right upper extremity occlusive DVT: Proximal right basilic vein and proximal right cephalic vein . Continue heparin IV infusion per protocol. * Lactic acidosis, tachycardia and tachypnea due to sepsis + UTI. Continue IV fluids and empiric IV antibiotic therapy with ceftriaxone. Blood and urine cultures obtained -will follow results. Continue to monitor lactic acid. * Possible history of PVD. Presence of aortobifemoral stent on hip x-ray. DVT prophylaxis: Heparin IV infusion Code status: Full Patient will need hospitalization for at least 2 midnights for JOSE ALFREDO, hypernatremia, UTI and right upper extremity occlusive DVT treatment with IV fluids, IV antibiotics and heparin IV infusion, respectively. Quality Stroke Does the patient have a stroke diagnosis?: No VTE Prior VTE?: No VTE Risk Level:: Medical - moderate - high VTE Device Contraindication: Treatment Not Indicated VTE Drug Contraindication: N/A - Med Ordered
[2024-02-17 05:25] LABS: Cancel Lactic Acid Canceled
[2024-02-17] MEDS: Dextrose 5 % and 0.45 % NaCl 1,000 ML 100 ML IVCONT (05:37)
[2024-02-17 06:48] LABS: VBG Base Excess -2.8 mmol/L; VBG HCO3 23 mmol/L (22-26); VBG pCO2 44 mmHg; VBG pH 7.32 (7.32-7.43); VBG pO2 90 mmHg
[2024-02-17 06:49] LABS: Basophils Percent Auto 0.2 % (0-2); Hematocrit 47.8 % (42.0-52.0); Hemoglobin 15.8 g/dl (14.0-18.0); Imm Gran Abs Auto 0.05 X10*3/uL (0.00-0.03); Imm Gran Pct Auto 0.5 % (0.0-0.4); Lymphocytes Absolute Auto 0.5 X10*3/uL (1.2-4.9); Lymphocytes Percent Auto 4.8 % (20-40); MANUAL DIFF FLAG SCAN; Mean Corpuscular HGB Conc 33.1 g/dl (31.0-36.0); Mean Corpuscular Hemoglobin 33.1 pg (27.0-33.0); Mean Corpuscular Volume 100.2 fL (80.0-98.0); Mean Platelet Volume 10.1 fL (9.4-12.4); Monocytes Absolute Auto 0.4 X10*3/uL (0.1-1.2); Monocytes Percent Auto 3.8 % (2-11); Neutrophils Absolute Auto 9.3 x10*3/uL (2.0-8.3); Neutrophils Percent Auto 90.7 % (45-73); Platelet Count 226 X10*3/uL (160-400); Red Blood Count 4.77 X10*6/uL (4.60-5.80); Red Cell Distribution Width 15.7 % (11.0-16.0); SCAN SMEAR FLAG 1; White Blood Count 10.3 X10*3/uL (4.8-10.8)
[2024-02-17 06:50] LABS: Venous Blood Gas Refer to POC result
--- NOTE | 2024-02-17 07:01 | PC.NURSE ---
Eport given to Sendy RUST
[2024-02-17 07:18] LABS: SLIDE REVIEW VERIFIED
[2024-02-17 07:43] LABS: ~Lactic Acid-LAB USE ONLY 3.7 mmol/L (0.5-2.0)
[2024-02-17 09:10] LABS: Alanine Aminotransferase 14 U/L (0-40); Anion Gap 17 (12-20); Aspartate Amino Transferase 35 U/L (5-37); Bilirubin Total 0.6 mg/dL (0.0-1.0); Blood Urea Nitrogen 48 mg/dL (9-16); Calcium 8.8 mg/dL (8.4-10.2); Carbon Dioxide 22 mmol/L (22-29); Chloride 112 mmol/L (96-108); Estimated Glomerular Filt Rate 42; Glucose Random 211 mg/dL (60-115); Magnesium 1.8 mg/dL (1.6-2.6); Phosphorus 2.5 mg/dL (2.7-4.5); Potassium 4.2 mmol/L (3.3-5.1); Sodium 147 mmol/L (135-145); Total Protein 6.1 g/dL (6.5-8.0)
[2024-02-17 09:16] LABS: Alkaline Phosphatase 71 U/L (39-117)
--- NOTE | 2024-02-17 11:00 | PHA.MEDREC ---
Pharmacy Consult ? Medication Reconciliation Pharmacy has completed the medication reconciliation. Pt poor historian and the contact within the EMR is out of service. Patient does not have any claim history as well, and [facility] not [facility] in their system. Leaving as no known home meds.
[2024-02-17] MEDS: LORazepam 2 MG/ML VIAL 1 MG IVPUSH (12:41)
[2024-02-17] MEDS: Haloperidol Lactate 5 MG/ML VIAL IM (12:42)
[2024-02-17 13:20] LABS: PTT Heparin Drip 68.3 SEC (53-77.9)
--- NOTE | 2024-02-17 14:22 | PM.EVENT ---
Event Note Date of Service: 02/17/24 Event Note: Chart reviewed. Patient examined. Agree with assessment and plan as outlined by night float. Patient is somewhat agitated this a.m. requiring a dose of Ativan/Haldol with good results. Initial CPKs 597 repeated now 378. Time Spent With Patient Time: Total time managing care of this patient today ____ minutes.
--- NOTE | 2024-02-17 15:09 | MHC.CM.PN ---
This CM attempted to meet with pt, but pt unable to partake in CM intake assessment due to altered mental status. EMR reviewed, no previous hospital visits seen. Pts contact listed is daughter Gissel, this CM placed a call to her at number listed, line was busy with no option of leaving a voicemail. CM will revisit pt at a later time to re-attempt CM intake assessment.
[2024-02-17] MEDS: 0.9 % Sodium Chloride Flush 3 ML SYRINGE IVFLUSH (17:05)
--- NOTE | 2024-02-17 20:01 | HO.SKINPHOTO ---
Location: R Thigh Category: DTI Stage: Length: Width: Depth: cm Location: R Knee Category: Abrasion Stage: Length: Width: Depth: cm Location: Category: Stage: Length: Width: Depth: cm Location: Category: Stage: Length: Width: Depth: cm Location: Category: Stage: Length: Width: Depth: cm Location: Category: Stage: Length: Width: Depth: cm
[2024-02-17] MEDS: vancomycin/NS 2,000 MG/500 ML PLAST..BAG 250 MG IV (20:34)
[2024-02-17 20:43] LABS: PTT Heparin Drip 91.3 SEC (53-77.9)
[2024-02-17 20:56] LABS: Anion Gap 13 (12-20); Blood Urea Nitrogen 46 mg/dL (9-16); Calcium 8.9 mg/dL (8.4-10.2); Carbon Dioxide 22 mmol/L (22-29); Chloride 114 mmol/L (96-108); Creatinine Clr Calc Pharmacy 50.2; Estimated Glomerular Filt Rate 53; Glucose Random 141 mg/dL (60-115); Potassium 4.3 mmol/L (3.3-5.1); Sodium 145 mmol/L (135-145)
[2024-02-17 21:10] LABS: Lactic Acid 2.5 mmol/L (0.5-2.0)
[2024-02-17 22:30] LABS: Reflex Lactate? Lactic Acid Added
[2024-02-17 23:51] LABS: ~Lactic Acid-LAB USE ONLY 2.1 mmol/L (0.5-2.0)
[2024-02-18] VITALS (9 sets, daily range): BP systolic 119–180; BP diastolic 58–93; PULSE 85–109; RESP 16–23; TEMP 36.1–36.8; O2SAT 91–95
[2024-02-18 01:24] LABS: Reflex Lactate? 2 Y
[2024-02-18 02:33] LABS: PTT Heparin Drip 80.5 SEC (53-77.9)
[2024-02-18 02:45] LABS: ~Lactic Acid-LAB USE ONLY 1.5 mmol/L (0.5-2.0)
--- NOTE | 2024-02-18 09:17 | MHC.CM.PN ---
IMM 02/17. Pt awake and able to answer questions, although CAPITAN GRANDE and very fixated on drinking something (pt currently NPO). Per pt, he lives alone at home and cares for himself, has no services or DME, nor any nearby family to help him. Pt states his daughter Gissel now lives in [place]. Pt states he doesn't have a PCP, but [facility] [place] [place] DCP: TBD, and will need assistance with transport at discharge.
[2024-02-18] MEDS: 0.9 % Sodium Chloride Flush 3 ML SYRINGE IVFLUSH ×2 (09:26→16:24)
[2024-02-18] MEDS: Metoprolol Tartrate 12.5 MG HALFTAB PO (09:26)
[2024-02-18 09:33] LABS: PTT Heparin Drip 45.7 SEC (53-77.9)
[2024-02-18 09:58] LABS: Creatinine Clr Calc Pharmacy 57.3; Estimated Glomerular Filt Rate > 60
[2024-02-18] MEDS: Heparin Sodium,Porcine 5,000 UNIT/ML VIAL 4300 UNIT IVPUSH (10:07)
[2024-02-18] MEDS: levalbuterol HCL 1.25 MG/3 ML VIAL.NEB INHALE ×3 (10:35→19:33)
[2024-02-18] MEDS: Apixaban 5 MG TABLET 10 MG PO ×2 (11:56→21:27)
[2024-02-18] MEDS: methylPREDNISolone Sod Succ 40 MG/ML VIAL IVPUSH ×2 (11:56→23:03)
--- NOTE | 2024-02-18 13:07 | P.PNIM_ITS ---
Subjective Subjective Date of Service: 02/18/24 Interval History: Being followed for acute mental status change, JOSE ALFREDO and electrolyte abnormality. Patient unable to recall what happened to him but thinks he was reaching for something and he fell, complaining of shortness of breath and right arm discomfort, and informs that he has childhood asthma that flares from time to time. Unable to recall his medical history or his medications Review of Systems Unable to obtain due to mental status Physical Exam 2 Vital Signs: Vital Signs: Last Vital Signs Temp 98.2 F 02/18/24 11:36 Pulse 99 02/18/24 11:36 Resp 18 02/18/24 11:36 BP 146/72 H 02/18/24 11:36 Pulse Ox 92 02/18/24 11:36 O2 Del Method Room Air 02/18/24 11:36 O2 Flow Rate 2 02/17/24 08:08 BMI result Body Mass Index 32.2 Const: Other: General resting comfortably in no acute distress. Neck no JVD. CVS irregular rate rhythm, Respiratory lungs bilateral expiratory wheeze, no respiratory distress Gastrointestinal abdomen soft, non tender, bowel sounds audible, no guarding , no rigidity. Extremities right upper extremity swollen, erythematous, no warmth Neuro moving all 4 extremity, speech clear. Skin right upper extremity erythema Psych poor insight Objective Data Active Medications Acetaminophen (Acetaminophen 325 Mg Tablet) 975 mg PO Q6H PRN PRN Reason: Pain, Mild (Pain Scale 1-3), fever or headache Apixaban (Apixaban 5 Mg Tablet) 10 mg PO BID [facility] Stop: 02/24/24 21:01 Last Admin: 02/18/24 11:56 Dose: 10 mg Documented By: DARLENE Ceftriaxone Sodium (Ceftriaxone Sodium 1 Gm Vial) 1 gm IVPUSH Q24H [facility] Last Admin: 02/17/24 20:26 Dose: 1 gm Documented By: MAY Diltiazem HCl (Diltiazem Hcl 60 Mg Tablet) 60 mg PO QID [facility]; Protocol Vancomycin HCl 1,250 mg/ (Sodium Chloride) 250 mls @ 166.667 mls/hr IV Q24H [facility] Levalbuterol HCl (Levalbuterol Hcl 1.25 Mg/3 Ml Vial.Neb) 1.25 mg INHALE Q3H PRN PRN Reason: Wheezing Last Admin: 02/18/24 10:35 Dose: 1.25 mg Documented By: BLASCL Levalbuterol HCl (Levalbuterol Hcl 1.25 Mg/3 Ml Vial.Neb) 1.25 mg INHALE RTID [facility] Melatonin (Melatonin 3 Mg Tablet) 6 mg PO BEDTIME PRN PRN Reason: Insomnia Methylprednisolone Sodium Succinate (Methylprednisolone Sod Succ 40 Mg/Ml Vial) 40 mg IVPUSH Q12H [facility] Last Admin: 02/18/24 11:56 Dose: 40 mg Documented By: DARLENE Sodium Chloride (0.9 % Sodium Chloride Flush 3 Ml Syringe) 3 ml IVFLUSH QSHIFT [facility] Last Admin: 02/18/24 09:26 Dose: 3 ml Documented By: DARLENE Labs 02/17/24 06:35 02/18/24 09:16 Labs: Laboratory Results - last 24 hr 02/17/24 02/17/24 02/17/24 13:02 20:24 23:06 Hold Purple Top SEE NOTE aPTT Heparin Protocol 68.3 91.3 H D Anion Gap 13 Estim Creat Clear Calc 50.2 Estimated GFR 53 Random Glucose 141 H Lactic Acid 2.5 H* Lactic Acid F/U @ 2Hr 2.1 H* Lactic Acid F/U @ 4Hr Calcium 8.9 Magnesium 2.0 02/18/24 02/18/24 02/18/24 02:14 09:16 09:17 Hold Purple Top aPTT Heparin Protocol 80.5 H 45.7 L D Anion Gap Estim Creat Clear Calc 57.3 Estimated GFR > 60 Random Glucose Lactic Acid Lactic Acid F/U @ 2Hr Lactic Acid F/U @ 4Hr 1.5 Calcium Magnesium Microbiology Microbiology Results: Microbiology 02/17/24 00:33 Blood Culture - Preliminary Blood - Venous Prelim: GPC Gram Stain only 02/17/24 Unknown Urine Culture - Preliminary Urine clean catch - Clean Catch Midstream Culture in progress. 02/17/24 00:15 Blood Culture - Preliminary Blood - Venous No growth after 24 hours. Assessment and Plan (1) JOSE ALFREDO (acute kidney injury): Status: Acute (2) Acute deep vein thrombosis (DVT) of right upper extremity: Status: Acute (3) Acute UTI: Status: Acute (4) Atrial fibrillation with RVR: Status: Acute Plan Nikita Hays is 88 y/o man with PMHx significant for dementia admitted with: Acute kidney injury. Likely prerenal secondary to poor p.o. intake of fluids/mild acte rhabdomyolysis (total CK 597)/? Obstructive uropathy history of straight catheterization Creatinine normalized, CPK improved from 597-378 phosphorus 2.5 and uric acid elevated at 9 ,Avoid nephrotoxic agents, follow labs. Acute intermittent asthma exacerbation As per patient he has childhood asthma with intermittent flares Initiate IV steroids, updraft treatment, DC metoprolol, cough medication as needed, stable oxygenation Rapid AFib, question new onset, no old history available Tele monitor showed AFib with ventricular rate 90-[address] Place on Cardizem 60 mg q.6 hours DC IV heparin, placed on Eliquis, follow echocardiogram Hypernatremia, likely poor intake of free water. DC IV fluids, place on diet. Right upper extremity occlusive DVT: Proximal right basilic vein and proximal right cephalic vein, DC IV heparin infusion placed on Eliquis 10 mg b.i.d. x7 days followed by 5 mg b.i.d. . Acute Lactic acidosis, tachycardia and tachypnea due to sepsis + UTI. Urine culture in progress, blood cultures 1/2 positive for Gram-positive cocci, on IV ceftriaxone, and IV vanco and follow final report No fevers, normal WBC count. Possible history of PVD. Presence of aortobifemoral stent on hip x-ray. Class 1 obesity recommend low-calorie diet Spoke with daughter Gissel Xiong, she informed that patient was admitted at [facility] few months ago and he was supposed to be discharged to rehab, but ended up being discharged home, she is not aware of his medical history since he is estranged From family, but informed that he has significant cardiac issues, unable to void and has chronic back pain, he has rapid cognitive decline in last 1 year but not aware of history of dementia DVT prophylaxis: Eliquis Code status: Full Patient will need continued inpatient hospitalization for right upper extremity occlusive DVT treatment , Quality Stroke Does the patient have a stroke diagnosis?: No VTE Prior VTE?: No VTE Risk Level:: Medical - moderate - high VTE Device Contraindication: Treatment Not Indicated VTE Drug Contraindication: N/A - Med Ordered
[2024-02-18] MEDS: dilTIAZem HCL 60 MG TABLET PO ×3 (14:30→21:27)
[2024-02-18] MEDS: OLANZapine 2.5 MG TABLET PO (16:24)
[2024-02-18] MEDS: cefTRIAXone sodium 1 GM VIAL IVPUSH (21:28)
[2024-02-18] MEDS: vancomycin HCL 1,250 MG in 0.9 % Sodium Chloride 250 ML 166.67 MG IV (21:28)
[2024-02-18] MEDS: Haloperidol Lactate 5 MG/ML VIAL 3 MG IM (21:28)
[2024-02-19] VITALS (11 sets, daily range): BP systolic 122–147; BP diastolic 55–77; PULSE 51–98; RESP 16–22; TEMP 36.1–36.6; O2SAT 90–97
[2024-02-19] MEDS: 0.9 % Sodium Chloride Flush 3 ML SYRINGE IVFLUSH ×4 (00:20→23:02)
--- NOTE | 2024-02-19 03:30 | PC.NURSE ---
Pt HR noted to be in the 30's and 40's.Easily awakened.Asymptomatic.Denied pain.No SOB.Dr Husain notified. states no interventions at this time.Cont to yoshi.
--- NOTE | 2024-02-19 07:00 | CA_ITS ---
Transthoracic Echocardiogram Patient (Last, First, Middle): Nikita Hays, Gender: Male Date of : 1935 Age: 88 Procedure Date: 02/19/2024 Procedure Type: Transthoracic Echocardiogram Location: [facility] Height: 182.88 cm Weight: 107.5 kg BSA: 2.29 m2 Heart Rate: 43 bpm BP: 139 / 59 mmHg Location Manager: SB Referring MD: Josué Guy MD Meat Specialist: Rashad Dhaliwal MD Symptoms: Rapid AFib Study Quality: Technically Difficult ECG Rhythm: Atrial Fibrillation Conclusions: - 1. Technically limited study despite use of contrast agent due to factors as listed 2. Hyperdynamic LV EF of greater than 70% 3. At least mildly dilated left atrium 4. Cardiac valvular Dopplers within normal limits 5. Normal measured RV systolic pressure Findings Procedure Information Contrast agent, definity, is being given per protocol without apparent complications. The quality of the study was technically difficult. The study quality is limited by the patients inability to tolerate the test, patients body habitus, lung artifact, and an uncooperative patient. Left Ventricle The left ventricle was not well visualized. The left ventricular systolic function is hyperdynamic. The visually estimated ejection fraction is >70%. Regional wall motion abnormalities can not be excluded due to suboptimal endocardial definition. Right Ventricle The right ventricle was not well visualized. Atria The left atrium is mildly dilated. Interatrial shunt cannot be excluded. The right atrium was not well visualized. Aortic Valve There is mild calcification of the aortic valve. There is no aortic valve stenosis. Mitral Valve There is moderate posterior mitral leaflet thickening. There is moderate mitral annular calcification. There is no mitral valve regurgitation. There is no mitral valve stenosis. Pulmonic Valve The pulmonic valve was not well visualized. Tricuspid Valve The tricuspid valve was not well visualized. The right ventricular systolic pressure is 27 mmHg. There is no evidence of pulmonary hypertension. Great Vessels The aorta was not well visualized. The pulmonary artery was not well visualized. Venous The inferior vena cava is normal in size. Pericardium/Pleural The pericardium was not well visualized. Measurements 2D Linear Measurements LVOT Diam: 2.10 3.0+(-)1.3 cm 2D Systolic Function EF 4C: 69.30 >55% EF 2C: 80.40 >55% EF BiP: 76.10 >55% Mitral Valve MV Pk E: 0.94 MV Decel Time: 285.00 Aortic Valve AoV Pk Chon: 1.15 AoV Pk Grad: 5.00 JANE: 2.45 LVOT LVOT Pk Chon: 0.82 LVOT Mn Chon: 0.64 LVOT VTI: 0.22 LVOT Pk Grad: 3.00 LVOT Mn Grad: 2.00 LVOT Diam: 2.10 LVOT Area: 3.46 Diastolic Function MV Pk E: 0.94 Right Ventricle TAPSE (mm): 14.90 TVS' Chon: 9.58 Tricuspid Valve TR Pk Chon: 2.46 TR Pk Grad: 24.00 RA Press: 3.00 RVSP: 27.00 Great Vessels Aorta Sinus of Valsalva: 3.30 2.0-3.5 cm Ao Asc: 3.40 2.1-3.4 cm Pulmonary Valve PV Pk Chon: 0.82 Peak PV Grad: 3.00 Updated in Other Vendor System with Status of Final Rashad Dhaliwal MD electronically signed on 02/19/2024 12:41:32 PM with status of Final
[2024-02-19 07:52] LABS: Anion Gap 14 (12-20); Blood Urea Nitrogen 45 mg/dL (9-16); Carbon Dioxide 20 mmol/L (22-29); Chloride 116 mmol/L (96-108); Creatinine Clr Calc Pharmacy 55.8; Estimated Glomerular Filt Rate 59; Glucose Random 138 mg/dL (60-115); Potassium 4.4 mmol/L (3.3-5.1); Sodium 146 mmol/L (135-145)
[2024-02-19] MEDS: levalbuterol HCL 1.25 MG/3 ML VIAL.NEB INHALE ×2 (08:12→14:44)
[2024-02-19] MEDS: methylPREDNISolone Sod Succ 40 MG/ML VIAL IVPUSH ×2 (10:26→23:02)
[2024-02-19] MEDS: Apixaban 5 MG TABLET 10 MG PO ×2 (10:26→20:48)
--- NOTE | 2024-02-19 16:17 | HO.PM.IMPN ---
Subjective Subjective Date of Service: 02/19/24 Interval History: Being followed for acute mental status change ,JOSE ALFREDO and AFib with RVR Tele monitor showed bradycardia with pause Patient awake alert offers no acute complaints denies chest pain, no lightheadedness, no dizziness, no acute events overnight Review of Systems All other system reviewed and are negative Physical Exam Vital Signs: Vital Signs: Last Vital Signs Temp 97.6 F 02/19/24 15:09 Pulse 67 02/19/24 15:09 Resp 17 02/19/24 15:09 BP 126/60 02/19/24 15:09 Pulse Ox 92 02/19/24 15:09 O2 Del Method Nasal Cannula 02/19/24 15:09 O2 Flow Rate 2 02/19/24 11:21 BMI result Body Mass Index 32.2 Const: Other: General resting comfortably in no acute distress. Neck no JVD. CVS irregular rate rhythm, bradycardic Respiratory lungs persistent bilateral expiratory wheeze, no respiratory distress Gastrointestinal abdomen soft, non tender, bowel sounds audible, no guarding , no rigidity. Extremities right upper extremity swollen, erythematous, no warmth Neuro moving all 4 extremity, speech clear. Skin right upper extremity erythema unchanged Psych poor insight Objective Data Active Medications Acetaminophen (Acetaminophen 325 Mg Tablet) 975 mg PO Q6H PRN PRN Reason: Pain, Mild (Pain Scale 1-3), fever or headache Apixaban (Apixaban 5 Mg Tablet) 10 mg PO BID [facility] Stop: 02/24/24 21:01 Last Admin: 02/19/24 10:26 Dose: 10 mg Documented By: WILDER Ceftriaxone Sodium (Ceftriaxone Sodium 1 Gm Vial) 1 gm IVPUSH Q24H [facility] Last Admin: 02/18/24 21:28 Dose: 1 gm Documented By: ZIA Haloperidol Lactate (Haloperidol Lactate 5 Mg/Ml Vial) 3 mg IM ONCE PRN PRN Reason: agitation Last Admin: 02/18/24 21:28 Dose: 3 mg Documented By: ZIA Vancomycin HCl 1,250 mg/ (Sodium Chloride) 250 mls @ 166.667 mls/hr IV Q24H [facility] Last Infusion: 02/18/24 23:04 Dose: Infused Documented By: ZIA Levalbuterol HCl (Levalbuterol Hcl 1.25 Mg/3 Ml Vial.Neb) 1.25 mg INHALE Q3H PRN PRN Reason: Wheezing Last Admin: 02/18/24 10:35 Dose: 1.25 mg Documented By: JERAMY Levalbuterol HCl (Levalbuterol Hcl 1.25 Mg/3 Ml Vial.Neb) 1.25 mg INHALE RTID [facility] Last Admin: 02/19/24 14:44 Dose: 1.25 mg Documented By: HARMAN Melatonin (Melatonin 3 Mg Tablet) 6 mg PO BEDTIME PRN PRN Reason: Insomnia Methylprednisolone Sodium Succinate (Methylprednisolone Sod Succ 40 Mg/Ml Vial) 40 mg IVPUSH Q12H [facility] Last Admin: 02/19/24 10:26 Dose: 40 mg Documented By: WILDER Pharmacy Consult (Consult Rx Vancomycin Dosing) 1 each MISCELLANE DAILY PRN PRN Reason: Consult order Sodium Chloride (0.9 % Sodium Chloride Flush 3 Ml Syringe) 3 ml IVFLUSH QSHIFT [facility] Last Admin: 02/19/24 10:27 Dose: 3 ml Documented By: WILDER Labs 02/17/24 06:35 02/19/24 06:26 Labs: Laboratory Results - last 24 hr 02/19/24 06:26 Hold Purple Top SEE NOTE Anion Gap 14 Estim Creat Clear Calc 55.8 Estimated GFR 59 Random Glucose 138 H Calcium 9.0 Microbiology Microbiology Results: Microbiology 02/17/24 00:33 Blood Culture - Preliminary Blood - Venous Enterococcus/Streptococcus sp Coag negative Staphylococcus 02/17/24 Unknown Urine Culture - Preliminary Urine clean catch - Clean Catch Midstream Staphylococcus species Enterococcus/Streptococcus sp 02/17/24 00:15 Blood Culture - Preliminary Blood - Venous No growth after 48 hours. Assessment and Plan (1) Acute deep vein thrombosis (DVT) of right upper extremity: Status: Acute (2) Acute UTI: Status: Acute (3) Bacteremia: Status: Acute Plan Nikita Hays is 88 y/o man with PMHx significant for dementia admitted with: Acute kidney injury. Likely prerenal secondary to poor p.o. intake of fluids/mild acte rhabdomyolysis (total CK 597)/? Obstructive uropathy history of straight catheterization Creatinine normalized, CPK improved from 597-378 phosphorus 2.5 and uric acid elevated at 9 ,Avoid nephrotoxic agents, follow labs. Acute intermittent asthma exacerbation As per patient he has childhood asthma with intermittent flares Continue IV steroids, updraft treatment, cough medication as needed, stable oxygenation Rapid AFib, question new onset, no old history available, requested records from [facility] Tele monitor showed AFib with ventricular rate 90-110 on admission, now noted to have bradycardia Will DC Cardizem, continue Eliquis , echocardiogram showed EF greater than 70%, regional wall motion abnormalities not excluded due to suboptimal echocardiogram definition, normal cardiac valves, normal right ventricular systolic pressure left atrium mildly dilated, intra-atrial shunt can not be excluded, no aortic valve stenosis. Consult cardiology if no improvement Hypernatremia, likely poor intake of free water. Will place on iv D5W and follow labs Right upper extremity occlusive DVT: Proximal right basilic vein and proximal right cephalic vein, s/p IV heparin infusion,now on Eliquis 10 mg b.i.d. x7 days started on 02/17 followed by 5 mg b.i.d. . Acute Lactic acidosis, tachycardia and tachypnea due to sepsis + UTI. Urine culture grew Staphylococcus species, Enterococcus and Streptococcus, blood culture 1/2 showed same pathogen on IV ceftriaxone, and IV vanco ,follow final sensitivities No fevers, normal WBC count. Possible history of PVD. Presence of aortobifemoral stent on hip x-ray. Class 1 obesity recommend low-calorie diet Spoke with daughter Gissel Xiong, she informed that patient was admitted at [facility] few months ago and he was supposed to be discharged to rehab, but ended up being discharged home, she is not aware of his medical history since he is estranged From family, but informed that he has significant cardiac issues, unable to void and has chronic back pain, he has rapid cognitive decline in last 1 year but not aware of history of dementia DVT prophylaxis: Eliquis Code status: Full Patient will need continued inpatient hospitalization for right upper extremity occlusive DVT treatment , treatment for bacteremia on IV antibiotics. Quality Stroke Does the patient have a stroke diagnosis?: No VTE Prior VTE?: No VTE Risk Level:: Medical - moderate - high VTE Device Contraindication: Treatment Not Indicated VTE Drug Contraindication: N/A - Med Ordered
[2024-02-19 18:43] LABS: Vancomycin Random 13.9 mcg/mL (15-20)
--- NOTE | 2024-02-19 18:46 | HE.PHANOTE ---
VANCO Trough came back at 13.9 after two doses. Leaving dose at 1250mg Q24H as renal function has remain in same range. Predicted trough at this dosin.5, predicted AUC: 495. Next trough to be drawn 02/19 @1900. Leaving for another day to see if dosing is sufficient or needs to be increased as pt hasn't been given 3 doses yet.
[2024-02-19] MEDS: cefTRIAXone sodium 1 GM VIAL IVPUSH (20:41)
[2024-02-19] MEDS: vancomycin HCL 1,250 MG in 0.9 % Sodium Chloride 250 ML 166.67 MG IV (20:48)
[2024-02-19] MEDS: Melatonin 3 MG TABLET 6 MG PO (20:48)
[2024-02-19] MEDS: Albuterol/Iprat 2.5/0.5MG 3 ML AMPUL.NEB INHALE (20:49)
[2024-02-19] MEDS: Acetaminophen 325 MG TABLET 975 MG PO (20:54)
[2024-02-20] VITALS (11 sets, daily range): BP systolic 106–192; BP diastolic 71–105; PULSE 69–105; RESP 16–20; TEMP 36–37; O2SAT 92–100
--- NOTE | 2024-02-20 00:59 | PM.EVENT ---
Event Note Date of Service: 02/20/24 Event Note: Nurse reported hematuria. Clots present. Ordered CBI and consulted urology. CBC in am Time Spent With Patient Time: Total time managing care of this patient today ____ minutes.
[2024-02-20] MEDS: LORazepam 2 MG/ML VIAL 1 MG IVPUSH ×2 (01:36→05:36)
--- NOTE | 2024-02-20 03:40 | HO.SKINPHOTO ---
RIGHT HIP, PHOTO TAKEN 20:30 02/18
[2024-02-20] MEDS: Morphine Sulfate 4 MG/ML CARTRIDGE IVPUSH (05:34)
[2024-02-20 08:33] LABS: MANUAL DIFF FLAG NO
[2024-02-20 08:42] LABS: INTERNATIONAL NORM RATIO 1.8 (0.9-1.1)
[2024-02-20 08:47] LABS: Basophils Absolute Auto 0.1 X10*3/uL (0.0-0.2); Basophils Percent Auto 0.2 % (0-2); Eosinophils Absolute Auto 0.1 X10*3/uL (0.0-0.4); Eosinophils Percent Auto 0.3 % (0-4); Hematocrit 36.6 % (42.0-52.0); Hemoglobin 12.3 g/dl (14.0-18.0); Imm Gran Abs Auto 0.74 X10*3/uL (0.00-0.03); Imm Gran Pct Auto 3.5 % (0.0-0.4); Lymphocytes Absolute Auto 1.2 X10*3/uL (1.2-4.9); Lymphocytes Percent Auto 5.5 % (20-40); Mean Corpuscular HGB Conc 33.6 g/dl (31.0-36.0); Mean Corpuscular Hemoglobin 33.9 pg (27.0-33.0); Mean Corpuscular Volume 100.8 fL (80.0-98.0); Mean Platelet Volume 10.6 fL (9.4-12.4); Monocytes Absolute Auto 1.3 X10*3/uL (0.1-1.2); Monocytes Percent Auto 5.8 % (2-11); NRBC Pct Auto 0.1 /100WBC (0.0-0.2); Neutrophils Absolute Auto 18.1 x10*3/uL (2.0-8.3); Neutrophils Percent Auto 84.7 % (45-73); Platelet Count 215 X10*3/uL (160-400); Red Blood Count 3.63 X10*6/uL (4.60-5.80); Red Cell Distribution Width 15.9 % (11.0-16.0)
[2024-02-20 08:53] LABS: Creatinine Clr Calc Pharmacy 59.4; Estimated Glomerular Filt Rate > 60
[2024-02-20 09:10] LABS: White Blood Count 21.4 X10*3/uL (4.8-10.8)
--- NOTE | 2024-02-20 10:39 | PM.UROCN ---
History of Present Illness Consult details Consult date: 02/20/24 Narrative: 88 year old male with dementia was admitted on 02/17/24 after being found on the floor at his home. Labs - c/w FREDY, UTI, pt started on anticoagulation. Called to evaluated due to hematuria. Pt is confused. Nursing stated patient was pulling on alcantar. Nursing state no significant clots at this time. Patient is on 1:!. 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 Tobacco Use Status: Tobacco use Unknown service: Yes Meds Allergies Allergy/AdvReac Type Severity Reaction Status Date / Time penicillin V Allergy Unknown Unknown Verified 02/17/24 00:00 Penicillins [PENICILLINS] Allergy Unknown UNKNOWN Verified 02/17/24 00:00 Active Medications: Current Medications Acetaminophen (Acetaminophen 325 Mg Tablet) 975 mg PO Q6H PRN PRN Reason: Pain, Mild (Pain Scale 1-3), fever or headache Last Admin: 02/19/24 20:54 Dose: 975 mg Albuterol/Ipratropium (Albuterol/Iprat 2.5/0.5mg 3 Ml Ampul.Neb) 3 ml INHALE RQ6H WHILE AWAKE [facility] Last Admin: 02/20/24 08:21 Dose: Not Given Apixaban (Apixaban 5 Mg Tablet) 10 mg PO BID [facility] Last Admin: 02/19/24 20:48 Dose: 10 mg Haloperidol Lactate (Haloperidol Lactate 5 Mg/Ml Vial) 3 mg IM ONCE PRN PRN Reason: agitation Last Admin: 02/18/24 21:28 Dose: 3 mg Vancomycin HCl 1,250 mg/ (Sodium Chloride) 250 mls @ 166.667 mls/hr IV Q24H [facility] Last Infusion: 02/19/24 22:18 Dose: Infused Dextrose (D5w) 1,000 mls @ 80 mls/hr IVCONT .[id number] [facility] Stop: 02/20/24 20:44 Levalbuterol HCl (Levalbuterol Hcl 1.25 Mg/3 Ml Vial.Neb) 1.25 mg INHALE Q3H PRN PRN Reason: Wheezing Last Admin: 02/18/24 10:35 Dose: 1.25 mg Melatonin (Melatonin 3 Mg Tablet) 6 mg PO BEDTIME PRN PRN Reason: Insomnia Last Admin: 02/19/24 20:48 Dose: 6 mg Methylprednisolone Sodium Succinate (Methylprednisolone Sod Succ 40 Mg/Ml Vial) 40 mg IVPUSH Q12H [facility] Last Admin: 02/19/24 23:02 Dose: 40 mg Pharmacy Consult (Consult Rx Vancomycin Dosing) 1 each MISCELLANE DAILY PRN PRN Reason: Consult order Sodium Chloride (0.9 % Sodium Chloride Flush 3 Ml Syringe) 3 ml IVFLUSH QSHIFT [facility] Last Admin: 02/19/24 23:02 Dose: 3 ml Home Medications ?Medication ?Instructions ?Recorded ?Confirmed ?Last Taken ?Type No Known Home Meds 02/17/24 02/17/24 Unknown History Physical Exam Vital Signs: Vital Signs: Last Vital Signs Temp 98.6 F 02/20/24 07:17 Pulse 80 02/20/24 07:17 Resp 17 02/20/24 07:17 BP 142/80 H 02/20/24 07:17 Pulse Ox 96 02/20/24 07:17 O2 Del Method Nasal Cannula 02/20/24 07:17 O2 Flow Rate 2 02/20/24 07:17 BMI result Body Mass Index 32.2 Const: General: no acute distress and well developed HEENT: Head: Yes normocephalic and Yes atraumatic Eyes: Conjunctivae: conjunctivae normal Neck: Neck: Yes normal visual inspection Chest: Chest palpation & inspection: normal inspection of the chest Resp: Effort & Inspection: normal respiratory effort Cardio: Rate: regular rate GI: Inspection: Yes normal to inspection Palpation (GI): Soft to palpation : Other: catheter in place, gross hematuria on CBI Penis: normal penis Scrotum: scrotum normal Psych: Appearance: grossly normal Results Labs 02/20/24 08:18 02/20/24 08:18 Labs: Abnormal lab results 02/19/24 02/20/24 Range/Units 18:20 08:18 WBC 21.4 H (4.8-10.8) X10*3/uL RBC 3.63 L D (4.60-5.80) X10*6/uL Hgb 12.3 L D (14.0-18.0) g/dl Hct 36.6 L D (42.0-52.0) % MCV 100.8 H (80.0-98.0) fL MCH 33.9 H (27.0-33.0) pg Immature Gran % (Auto) 3.5 H (0.0-0.4) % Neut % (Auto) 84.7 H (45-73) % Lymph % (Auto) 5.5 L (20-40) % Stephenson # (Auto) 1.3 H (0.1-1.2) X10*3/uL Abs Immat Gran (auto) 0.74 H (0.00-0.03) X10*3/uL Absolute Neuts (auto) 18.1 H (2.0-8.3) x10*3/uL Absolute Nucleated RBC 0.020 H (0.0-0.012) X10*3/uL PT 21.0 H D (10.9-12.4) SEC INR 1.8 H (0.9-1.1) Random Vancomycin 13.9 L (15-20) mcg/mL Short CBC 02/20/24 Range/Units 08:18 WBC 21.4 H (4.8-10.8) X10*3/uL Hgb 12.3 L D (14.0-18.0) g/dl Hct 36.6 L D (42.0-52.0) % Plt Count 215 (160-400) X10*3/uL BMP 02/20/24 08:18 Creatinine 1.09 Urine 02/17/24 Range/Units 00:54 Urine Color Yellow Urine Appearance Turbid Urine pH 5.5 (5.0-9.0) Ur Specific [place] 1.015 (1.005-1.025) Urine Protein 100 (2+) H (Neg-Trace) mg/dL Urine Glucose (UA) Negative (Negative) mg/dL Collected: 02/17/24-UNK Status: COMP Req#: [id number] Received: 02/17/24 Source: [facility] Sp Desc: Clean Cat Subm Dr: Carolyn Larkin MD Ordered: Urine Culture Comments: Draw grn gel and Lavender along with 10:00 draw. Per Hematology. [place] Procedure Result Verified Urine Culture Final 02/20/24 Organism 1 Staphylococcus lugdunensis Quant > 100,000 cfu/mL Organism 2 Enterococcus faecalis Quant < 10,000 cfu/mL S selma E faecalis M.I.C. RX M.I.C. RX --------- --- --------- --- Ampicillin <=2 S Clindamycin <=0.25 S Erythromycin <=0.25 S Levofloxacin 1 S Nitrofurantoin <=16 S <=16 S Oxacillin 2 S Penicillin-G >=0.5 R Tetracycline <=1 S >=16 R Trimethoprim/Sulfamethoxazole <=10 S Vancomycin 1 S Assessment and Plan (1) JOSE ALFREDO (acute kidney injury): Status: Acute (2) Acute UTI: Status: Acute (3) Bacteremia: Status: Acute (4) Hematuria: Status: Acute Plan Pt was on anticoagulant, on hold pt on Abx Recommend check US retroperitoneum Continue CBI Procedures Date of Service Date of Service: 02/20/24
--- NOTE | 2024-02-20 10:43 | HO.BHRESTREX ---
Behavioral Restraint Exam Behavioral Health Restraint Exam Type of Restraint: Physical Hold Reason for Restraint: Substantial Risk of Harm to Others Comment: Continue soft restraint since patient hitting staff and pulling Baltazar line
[2024-02-20 11:14] LABS: HIV AB/AG Nonreactive (Nonreactive); HIV Num 1 0.06 S/CO (0.00-0.99)
[2024-02-20] MEDS: Dextrose 5 % 1,000 ML 80 ML IVCONT (12:00)
[2024-02-20] MEDS: methylPREDNISolone Sod Succ 40 MG/ML VIAL IVPUSH ×2 (12:01→22:20)
[2024-02-20] MEDS: 0.9 % Sodium Chloride Flush 3 ML SYRINGE IVFLUSH (12:03)
--- NOTE | 2024-02-20 14:46 | HO.WOUND ---
Wound Consult: Initial 88yr old?male admitted to [facility] on 02/17/24 - See progress notes and H&P for detailed history.? Wound consult placed for Right Hip wound POA.? Patient agreeable to assessment and photo documentation.? Patient is confused but was agreeable and compliant with repositions to assess his skin. Chart review reveal patient was found down at his home for unknown period of time. Of note patient is tall and would benefit from longer bed - longer bed available is bariatric although pt does not need width he does need length. Bariatric bed ordered. Right Ear - DTI - may leave open to air and off load pressure Right Lateral Shoulder - DTI in Evolution - Foam dressing Right Lower Leg Abrasions - stable and dry may leave open to air Right Trochanter - DTI in Evolution - Triad and foam dressing Right Elbow - Unstageable Pressure Injury - Recommend TRiad and foam dressing Right upper leg bruise Buttocks - MASD (Moisture associated skin damage) red purple blanchable tissue Various wounds in various stages of healing. Inpatient wound care nurse will continue to follow. Recommendations: 1. Turn and Reposition every 2 hours and as needed for patient comfort.? Use pillows or wedges to support off loading positions. 2. Off Load all bony prominences with use of pillows and heel boots if needed.? Apply Preventative foams where needed. ? 3. Monitor for incontinence and moisture control, use barrier creams when needed for prevention and treatment. 4. Provide adequate and supplemental nutrition.? 5. Order bariatric long mattress. 6. When applicable maintain blood glucose levels per Providers order. 7. Buttock and coccyx - Off Load Pressure - Routine cleansing, apply barrier cream to protect from moisture and friction. Apply twice daily and PRN after episodes of incontinence. 8. Right Trochanter, right shoulder and right elbow - Off Load Pressure- use pillows for Q2hr turns - Cleanse with Kenna spray. Apply skin prep. Cover wound bed with triad followed by foam dressing. Change every 2-3 days and PRN. Re-consult wound care Nurse for wound deterioration or wound changes.
[2024-02-20] MEDS: Albuterol/Iprat 2.5/0.5MG 3 ML AMPUL.NEB INHALE ×2 (15:46→19:37)
--- NOTE | 2024-02-20 17:46 | HO.PM.IMPN ---
Subjective Subjective Date of Service: 02/21/24 Interval History: Patient noted to be agitated this a.m. pulled Baltazar catheter noted to have kami hematuria with clots, started on CBI, soft restraints applied, received 2 dose of IV Ativan, 4 mg of morphine sulfate, At present patient is resting calmly, not agitated, not communicating. Review of Systems Unable to obtain due to mental status Physical Exam Vital Signs: Vital Signs: Last Vital Signs Temp 97 F 02/20/24 16:00 Pulse 99 02/20/24 16:00 Resp 20 02/20/24 16:00 BP 135/84 02/20/24 16:00 Pulse Ox 100 02/20/24 16:00 O2 Del Method Room Air 02/20/24 16:00 O2 Flow Rate 2 02/20/24 07:17 BMI result Body Mass Index 32.2 Const: Other: General resting comfortably in no acute distress. Neck no JVD. CVS irregular rate rhythm Respiratory lungs persistent bilateral expiratory wheeze, no respiratory distress Gastrointestinal abdomen soft, non tender, bowel sounds audible, no guarding , no rigidity. Extremities right upper extremity swelling and redness improving Neuro moving all 4 extremity, speech clear. Skin right upper extremity swollen with decreased erythema DEEP TISSUE INJURY right ear, right lateral shoulder ,and right lower leg Buttocks moisture associated skin damage Noted to have various wounds in various stages of healing Psych poor insight Objective Data Active Medications Acetaminophen (Acetaminophen 325 Mg Tablet) 975 mg PO Q6H PRN PRN Reason: Pain, Mild (Pain Scale 1-3), fever or headache Last Admin: 02/19/24 20:54 Dose: 975 mg Documented By: MARICHUY Albuterol/Ipratropium (Albuterol/Iprat 2.5/0.5mg 3 Ml Ampul.Neb) 3 ml INHALE RQ6H WHILE AWAKE [facility] Last Admin: 02/20/24 15:46 Dose: 3 ml Documented By: JUAQUIN Apixaban (Apixaban 5 Mg Tablet) 10 mg PO BID [facility] Last Admin: 02/19/24 20:48 Dose: 10 mg Documented By: MARICHUY Haloperidol Lactate (Haloperidol Lactate 5 Mg/Ml Vial) 3 mg IM ONCE PRN PRN Reason: agitation Last Admin: 02/18/24 21:28 Dose: 3 mg Documented By: HO.GOODMA Vancomycin HCl 1,250 mg/ (Sodium Chloride) 250 mls @ 166.667 mls/hr IV Q24H [facility] Last Infusion: 02/19/24 22:18 Dose: Infused Documented By: KHARI Dextrose (D5w) 1,000 mls @ 80 mls/hr IVCONT .[id number] [facility] Stop: 02/20/24 20:44 Last Admin: 02/20/24 12:00 Dose: 80 mls/hr Documented By: SRAVANTHI Levalbuterol HCl (Levalbuterol Hcl 1.25 Mg/3 Ml Vial.Neb) 1.25 mg INHALE Q3H PRN PRN Reason: Wheezing Last Admin: 02/18/24 10:35 Dose: 1.25 mg Documented By: JERAMY Melatonin (Melatonin 3 Mg Tablet) 6 mg PO BEDTIME PRN PRN Reason: Insomnia Last Admin: 02/19/24 20:48 Dose: 6 mg Documented By: MARICHUY Methylprednisolone Sodium Succinate (Methylprednisolone Sod Succ 40 Mg/Ml Vial) 40 mg IVPUSH Q12H [facility] Last Admin: 02/20/24 12:01 Dose: 40 mg Documented By: SRAVANTHI Pharmacy Consult (Consult Rx Vancomycin Dosing) 1 each MISCELLANE DAILY PRN PRN Reason: Consult order Sodium Chloride (0.9 % Sodium Chloride Flush 3 Ml Syringe) 3 ml IVFLUSH QSHIFT [facility] Last Admin: 02/20/24 12:03 Dose: 3 ml Documented By: SRAVANTHI Labs 02/21/24 10:55 02/20/24 08:18 Labs: Laboratory Results - last 24 hr 02/19/24 02/20/24 02/20/24 18:20 08:18 10:13 MCV 100.8 H MCH 33.9 H MCHC 33.6 RDW 15.9 Plt Count 215 MPV 10.6 Immature Gran % (Auto) 3.5 H Neut % (Auto) 84.7 H Lymph % (Auto) 5.5 L Cedar % (Auto) 5.8 Eos % (Auto) 0.3 Baso % (Auto) 0.2 Lymph # (Auto) 1.2 Cedar # (Auto) 1.3 H Eos # (Auto) 0.1 Baso # (Auto) 0.1 Abs Immat Gran (auto) 0.74 H Absolute Neuts (auto) 18.1 H Absolute Nucleated RBC 0.020 H Nucleated RBC % (auto) 0.1 PT 21.0 H D INR 1.8 H Estim Creat Clear Calc 59.4 Estimated GFR > 60 Random Vancomycin 13.9 L HIV 1&2 Ab/P24 Ag 4thGn Nonreactive Microbiology Microbiology Results: Microbiology 02/17/24 00:33 Blood Culture - Final Blood - Venous Enterococcus faecalis Coag negative Staphylococcus 02/17/24 00:15 Blood Culture - Preliminary Blood - Venous No growth after 48 hours. 02/17/24 Unknown Urine Culture - Final Urine clean catch - Clean Catch Midstream Staphylococcus lugdunensis Enterococcus faecalis Assessment and Plan (1) Hematuria: Status: Acute (2) Bacteremia: Status: Acute (3) JOSE ALFREDO (acute kidney injury): Status: Acute (4) Acute deep vein thrombosis (DVT) of right upper extremity: Status: Acute (5) Acute UTI: Status: Acute (6) Atrial fibrillation with RVR: Status: Acute Plan Nikita Hays is 88 y/o man with PMHx significant for dementia admitted with: Acute kidney injury. Likely prerenal secondary to poor p.o. intake of fluids/mild acute rhabdomyolysis (total CK 597)/? Obstructive uropathy history of straight catheterization Creatinine normalized, CPK improved from 597-378 Avoid nephrotoxic agents, follow labs. Acute intermittent asthma exacerbation As per patient he has childhood asthma with intermittent flares Continue IV steroids, updraft treatment, cough medication as needed, stable oxygenation Rapid AFib, with history of atrial fibrillation on xarelto reviewed records from [facility] Tele monitor showed AFib with ventricular rate 90-110 on admission, treated with Cardizem noted to have bradycardia therefore Cardizem discontinued and Eliquis held due to hematuria echocardiogram showed EF greater than 70%, regional wall motion abnormalities not excluded due to suboptimal echocardiogram definition, normal cardiac valves, normal right ventricular systolic pressure left atrium mildly dilated, intra-atrial shunt can not be excluded, no aortic valve stenosis. Remains in AFib with stable ventricular rate Hypernatremia, likely poor intake of free water, on iv D5W and follow labs Right upper extremity occlusive DVT: Proximal right basilic vein and proximal right cephalic vein, s/p IV heparin infusion, was on Eliquis 10 mg b.i.d. x7 days started on 02/17 followed by 5 mg b.i.d. Eliquis held due to hematuria. Acute Lactic acidosis, tachycardia and tachypnea due to sepsis + UTI. Urine culture grew Staphylococcus species, Enterococcus and Streptococcus, blood culture 1/2 showed same pathogen on IV ceftriaxone, and IV vanco ,follow final sensitivities No fevers, normal WBC count. Possible history of PVD. Presence of aortobifemoral stent on hip x-ray. Class 1 obesity recommend low-calorie diet Spoke with daughter Gissel Xiong, she informed that patient was admitted at [facility] few months ago and he was supposed to be discharged to rehab, but ended up being discharged home, she is not aware of his medical history since he is estranged From family, but informed that he has significant cardiac issues, unable to void and has chronic back pain, he has rapid cognitive decline in last 1 year but not aware of history of dementia Reviewed old records from [facility] 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, coronary artery disease, COPD, ZOIE not on CPAP History of atrial flutter on Xarelto patient was admitted at [facility] in October for community-acquired pneumonia, he also developed acute on chronic hypoxic respiratory failure, his course was complicated by delirium with sundowning and agitation require treatment with trazodone he also had an episode of dark brown emesis and bright red blood per rectum gastroenterology was consulted and scope was deferred as low concern for active bleed CT a revealed esophagitis so was started on oral PPI emesis and bright red blood per rectum was resolved with bowel regimen, patient also noted to have episode of gross hematuria after straight catheterization that improved after 40 placement had a normal CT urogram hematuria was thought to be due to possible phos urinary tract creation in the setting of straight catheterization trauma, due to dementia and inability to self-catheterize after a family meeting on 10/12/2023 with a Occupational therapy in geriatric conservatorship was pursued. DVT prophylaxis: Code status: Full Patient will need continued inpatient hospitalization for hematuria requiring CBI, treatment for bacteremia on IV antibiotics, and to pursue further treatment for right upper extremity DVT and expert consultation. Quality Stroke Does the patient have a stroke diagnosis?: No VTE Prior VTE?: No VTE Risk Level:: Medical - moderate - high VTE Device Contraindication: Treatment Not Indicated VTE Drug Contraindication: N/A - Med Ordered
[2024-02-20 19:38] LABS: Vancomycin Random 17.6 mcg/mL (15-20)
[2024-02-20] MEDS: Morphine Sulfate 4 MG/ML CARTRIDGE 3 MG IVPUSH (20:30)
[2024-02-20] MEDS: vancomycin HCL 1,000 MG in 0.9 % Sodium Chloride 250 ML 270 MG IV (22:20)
[2024-02-21] VITALS: BP 110/72; PULSE 101; RESP 18; TEMP 36.4; O2SAT 99
[2024-02-21] MEDS: 0.9 % Sodium Chloride Flush 3 ML SYRINGE IVFLUSH ×3 (01:05→23:27)
[2024-02-21 03:32] VITALS: BP 109/61; PULSE 96; RESP 17; TEMP 36.6; O2SAT 98
[2024-02-21] MEDS: Morphine Sulfate 4 MG/ML CARTRIDGE 3 MG IVPUSH (04:15)
[2024-02-21 08:00] VITALS: BP 116/51; PULSE 93; RESP 20; TEMP 36.2; O2SAT 97
--- NOTE | 2024-02-21 09:22 | MHC.CM.PN ---
Addendum entered by Martha Peterson RN 02/21/24 09:47: [facility], PT DOES NOT HAVE SN[facility]/L[facility] BENEFITS [facility]OUGH [facility], LIAISON DID VERIFY PT'S PCP IS [facility] [place]. Addendum entered by Martha Peterson RN 02/21/24 09:25: PSYCH CONSULT PENDING. Original Note: EMR REVIEWED, CM RECEIVED FAX FROM [facility] NOTING THEY DO NOT HAVE A HCP ON FILE FOR PT, THIS CM REQUESTED [employer] MANAGER LOOK [facility] S[facility] TO DETERMINE BENEFIT ELIGIBILITY, CM WILL FOLLOW.
[2024-02-21 11:36] LABS: Basophils Absolute Auto 0.1 X10*3/uL (0.0-0.2); Basophils Percent Auto 0.5 % (0-2); Eosinophils Percent Auto 0.2 % (0-4); Hematocrit 33.6 % (42.0-52.0); Imm Gran Abs Auto 1.21 X10*3/uL (0.00-0.03); Imm Gran Pct Auto 4.6 % (0.0-0.4); Lymphocytes Absolute Auto 1.2 X10*3/uL (1.2-4.9); Lymphocytes Percent Auto 4.5 % (20-40); MANUAL DIFF FLAG SCAN; Mean Corpuscular HGB Conc 32.7 g/dl (31.0-36.0); Mean Corpuscular Hemoglobin 33.2 pg (27.0-33.0); Mean Corpuscular Volume 101.5 fL (80.0-98.0); Mean Platelet Volume 11.3 fL (9.4-12.4); Monocytes Absolute Auto 1.5 X10*3/uL (0.1-1.2); Monocytes Percent Auto 5.8 % (2-11); NRBC Pct Auto 0.7 /100WBC (0.0-0.2); Neutrophils Absolute Auto 22.3 x10*3/uL (2.0-8.3); Neutrophils Percent Auto 84.4 % (45-73); PLT CLUMP 1; Red Blood Count 3.31 X10*6/uL (4.60-5.80); SCAN SMEAR FLAG 1
[2024-02-21 12:00] VITALS: BP 116/40; PULSE 100; RESP 20; TEMP 36.3; O2SAT 98
[2024-02-21 12:07] LABS: White Blood Count 26.4 X10*3/uL (4.8-10.8)
[2024-02-21 12:08] LABS: Platelet Count 200 X10*3/uL (160-400); SLIDE REVIEW VERIFIED
[2024-02-21] MEDS: methylPREDNISolone Sod Succ 40 MG/ML VIAL IVPUSH (12:18)
--- NOTE | 2024-02-21 14:32 | P.CNPS_ITS ---
History of Present Illness Date of Service: 02/21/24 Chief Complaint: AMS, JOSE ALFREDO, DKI Reason for Consult: behavioral issues/capacity decision making Requesting physician: Usman Lorenzo Discussed with referring provider: Yes Sources of Information: chart reviewed HPI Narrative: Patient is a 88 y/o male with PMHx significant for dementia who was admitted to medicine with several medical comorbidities such as, acute kidney injury, acute intermittent asthma exacerbation, rapid AFib, hypernatremia, right upper extremity occlusive DVT, acute Lactic acidosis, tachycardia and tachypnea due to sepsis + UTI. Psychiatric consult placed for: behavioral issues/capacity decision making. During assessment, pt was observed to be overly sedated and was unable to participate in interview. Nursing reported, pt has been sleeping all morning since receiving medications last evening. Spoke with Dr. Lorenzo who was informed of over sedation of patient. Psychiatric assessment will have to be deferred until patient is not overly sedated. Past Psychiatric History: unable to obtain Medical Evaluation Reviewed: Yes Review of Systems Review of Systems Yes Unobtainable due to mental status [facility] Medical History (Updated 02/21/24 @ 16:42 by Jennifer Larkin NP) Asthma Dementia Diagnostics Vital Signs (24Hr): Vital Signs - 24 hr 02/20/24 15:48 02/20/24 16:00 02/20/24 19:25 Temperature 97 F 97 F Pulse Rate 105 H 99 95 Respiratory Rate 18 20 16 Blood Pressure 135/84 116/71 Pulse Oximetry 100 92 Oxygen Delivery Method Room Air Room Air Oxygen Flow Rate 02/20/24 19:40 02/21/24 00:00 02/21/24 03:32 Temperature 97.6 F 97.8 F Pulse Rate 105 H 101 H 96 Respiratory Rate 18 18 17 Blood Pressure 110/72 109/61 Pulse Oximetry 99 98 Oxygen Delivery Method Room Air Nasal Cannula Oxygen Flow Rate 2 02/21/24 08:00 02/21/24 12:00 Temperature 97.1 F 97.3 F Pulse Rate 93 100 Respiratory Rate 20 20 Blood Pressure 116/51 L 116/40 L Pulse Oximetry 97 98 Oxygen Delivery Method Nasal Cannula Room Air Oxygen Flow Rate 2 BMI result Body Mass Index 32.2 Labs 02/21/24 10:55 02/20/24 08:18 Labs: Laboratory Results - last 48 hr 02/19/24 02/20/24 02/20/24 18:20 08:18 10:13 WBC 21.4 H RBC 3.63 L D Hgb 12.3 L D Hct 36.6 L D MCV 100.8 H MCH 33.9 H MCHC 33.6 RDW 15.9 Plt Count 215 MPV 10.6 Immature Gran % (Auto) 3.5 H Neut % (Auto) 84.7 H Lymph % (Auto) 5.5 L [place] % (Auto) 5.8 Eos % (Auto) 0.3 Baso % (Auto) 0.2 Lymph # (Auto) 1.2 [place] # (Auto) 1.3 H Eos # (Auto) 0.1 Baso # (Auto) 0.1 Abs Immat Gran (auto) 0.74 H Absolute Neuts (auto) 18.1 H Absolute Nucleated RBC 0.020 H Nucleated RBC % (auto) 0.1 Smear Tech's Comments PT 21.0 H D INR 1.8 H Creatinine 1.09 Estim Creat Clear Calc 59.4 Estimated GFR > 60 Random Vancomycin 13.9 L HIV 1&2 Ab/P24 Ag 4thGn Nonreactive 02/20/24 02/21/24 19:05 10:55 WBC 26.4 H RBC 3.31 L Hgb 11.0 L Hct 33.6 L MCV 101.5 H MCH 33.2 H MCHC 32.7 RDW 16.0 Plt Count 200 MPV 11.3 Immature Gran % (Auto) 4.6 H Neut % (Auto) 84.4 H Lymph % (Auto) 4.5 L [place] % (Auto) 5.8 Eos % (Auto) 0.2 Baso % (Auto) 0.5 Lymph # (Auto) 1.2 [place] # (Auto) 1.5 H Eos # (Auto) 0.0 Baso # (Auto) 0.1 Abs Immat Gran (auto) 1.21 H Absolute Neuts (auto) 22.3 H Absolute Nucleated RBC 0.190 H Nucleated RBC % (auto) 0.7 H Smear Tech's Comments VERIFIED PT INR Creatinine Estim Creat Clear Calc Estimated GFR Random Vancomycin 17.6 HIV 1&2 Ab/P24 Ag 4thGn Imaging Radiology Impressions: ITS Impressions Cervical Spine CT 02/17/24 00:03 IMPRESSION: CT HEAD: 1. No acute intracranial abnormalities. 2. Moderate diffuse parenchymal volume loss the brain and advanced chronic microangiopathic ischemic changes. CT CERVICAL SPINE: 1. No acute abnormalities. 2. Diffuse osteopenia. 3. Right internal carotid artery stent in situ. Electronically signed by: Ronald Loza MD 02/17/2024 01:26 AM EST RP Hip X-Ray 02/17/24 00:03 IMPRESSION: Chest: No acute cardiopulmonary abnormalities. Hips and pelvis: 1. Partially visualized aortobifemoral stent graft. 2. Diffuse vascular calcifications. 3. No acute abnormalities identified. Electronically signed by: Ronald Loza MD 02/17/2024 02:07 AM EST RP Chest X-Ray 02/17/24 00:04 IMPRESSION: Chest: No acute cardiopulmonary abnormalities. Hips and pelvis: 1. Partially visualized aortobifemoral stent graft. 2. Diffuse vascular calcifications. 3. No acute abnormalities identified. Electronically signed by: Ronald Loza MD 02/17/2024 02:07 AM EST RP Head CT 02/17/24 01:00 IMPRESSION: CT HEAD: 1. No acute intracranial abnormalities. 2. Moderate diffuse parenchymal volume loss the brain and advanced chronic microangiopathic ischemic changes. CT CERVICAL SPINE: 1. No acute abnormalities. 2. Diffuse osteopenia. 3. Right internal carotid artery stent in situ. Electronically signed by: Ronald Loza MD 02/17/2024 01:26 AM EST RP Venous Duplex 02/17/24 01:48 IMPRESSION: Right upper extremity venous ultrasonography positive for deep venous thrombosis. Occlusive thrombus within the proximal right basilic vein and proximal right cephalic vein. Normal appearance of the visualized left internal jugular vein. This critical result was discussed with Carolyn Larkin MD MD by telephone at 02/17/2024 3:21 AM EST and it was ascertained that the content and urgency of the report was understood at the time of direct communication. Electronically signed by: Ronald Loza MD 02/17/2024 03:22 AM EST RP Retroperitoneum Ultrasound 02/20/24 19:08 IMPRESSION: 1. Increased renal parenchymal echogenicity and renal cortical thinning, which can be seen in the setting of medical renal disease. No hydronephrosis or nephrolithiasis. 2. Sonographically unremarkable urinary bladder. Postvoid residual of 476.7 mL. Electronically signed by: Waylon Thomas MD 02/21/2024 09:44 AM [facility] Mental Status Exam Mental Status Exam Level of Consciousness: Sedated Medications Medications Current Medications Acetaminophen (Acetaminophen 325 Mg Tablet) 975 mg PO Q6H PRN PRN Reason: Pain, Mild (Pain Scale 1-3), fever or headache Last Admin: 02/19/24 20:54 Dose: 975 mg Albuterol/Ipratropium (Albuterol/Iprat 2.5/0.5mg 3 Ml Ampul.Neb) 3 ml INHALE RQ6H WHILE AWAKE [facility] Last Admin: 02/21/24 07:53 Dose: Not Given Haloperidol (Haloperidol 1 Mg Tablet) 2 mg PO TID PRN PRN Reason: psychosis Haloperidol Lactate (Haloperidol Lactate 5 Mg/Ml Vial) 3 mg IM ONCE PRN PRN Reason: agitation Last Admin: 02/18/24 21:28 Dose: 3 mg Vancomycin HCl 1,000 mg/ (Sodium Chloride) 270 mls @ 270 mls/hr IV Q24H [facility] Last Infusion: 02/20/24 23:20 Dose: Infused Levalbuterol HCl (Levalbuterol Hcl 1.25 Mg/3 Ml Vial.Neb) 1.25 mg INHALE Q3H PRN PRN Reason: Wheezing Last Admin: 02/18/24 10:35 Dose: 1.25 mg Melatonin (Melatonin 3 Mg Tablet) 6 mg PO BEDTIME PRN PRN Reason: Insomnia Last Admin: 02/19/24 20:48 Dose: 6 mg Methylprednisolone Sodium Succinate (Methylprednisolone Sod Succ 40 Mg/Ml Vial) 40 mg IVPUSH Q12H [facility] Last Admin: 02/21/24 12:18 Dose: 40 mg Morphine Sulfate (Morphine Sulfate 4 Mg/Ml Cartridge) 3 mg IVPUSH Q6H PRN; Protocol PRN Reason: Pain, Severe (Pain Scale 7-10) Last Admin: 02/21/24 04:15 Dose: 3 mg Omeprazole (Omeprazole 20 Mg Capsule.Dr) 20 mg PO DAILY@0630 [facility] Last Admin: 02/21/24 05:41 Dose: Not Given Pharmacy Consult (Consult Rx Vancomycin Dosing) 1 each MISCELLANE DAILY PRN PRN Reason: Consult order Sodium Chloride (0.9 % Sodium Chloride Flush 3 Ml Syringe) 3 ml IVFLUSH QSHIFT [facility] Last Admin: 02/21/24 12:18 Dose: 3 ml Trazodone HCl (Trazodone Hcl 50 Mg Tablet) 50 mg PO BID PRN PRN Reason: insomnia/agitation Allergies Allergies Allergy/AdvReac Type Severity Reaction Status Date / Time penicillin V Allergy Unknown Unknown Verified 02/17/24 00:00 Penicillins [PENICILLINS] Allergy Unknown UNKNOWN Verified 02/17/24 00:00 Assessment & Plan Assessment & Plan (1) Encounter for assessment of healthcare decision-making capacity: Status: Acute Code(s): Z02.79 - Encounter for issue of other medical certificate Plan Psychiatric assessment will have to be deferred until patient is not overly sedated. Informed nursing and Dr. Lorenzo to please contact T/W when patient is awake. Will attempt to meet with patient again tomorrow. Total time managing care of this patient today _20___ minutes.
--- NOTE | 2024-02-21 15:42 | PM.HEMONCCN ---
Subjective - Subjective Chief complaint: Unable to provide Patient: new to practice Consult date: 02/21/24 Primary Care Provider: None Physician HPI - Consult Narrative Reason for consult: Right upper extremity DVT Narrative: Nikita Hyas is a 88 year old male with past medical history significant for dementia who was brought in to the hospital as he was found lying on the floor confused. Patient is unable to provide any history. In the ED patient was found to be in atrial fibrillation, head dense CT spine of neck were unremarkable. Chest x-ray was negative. He was found to have swelling of the right upper extremity. Doppler revealed DVT in the right basilic vein and proximal right cephalic vein. He was started on IV heparin. However he developed hematuria as he pulled on his Baltazar catheter. Heparin has been discontinued. [facility] Medical History: Medical History (Last Updated 02/21/24 @ 15:52 by Sabina Thapa MD) Asthma Dementia Social History: Social History Living Situation History: Household Members: Unknown / Unable to asses Alcohol History: Unable to assess alcohol history related to: Unknown Tobacco History: Patient Tobacco Use Status: Tobacco use Unknown Occupation Assessmet: service: Yes Home Medications and Allergies Current Medications: Current Medications Acetaminophen (Acetaminophen 325 Mg Tablet) 975 mg PO Q6H PRN PRN Reason: Pain, Mild (Pain Scale 1-3), fever or headache Last Admin: 02/19/24 20:54 Dose: 975 mg Albuterol/Ipratropium (Albuterol/Iprat 2.5/0.5mg 3 Ml Ampul.Neb) 3 ml INHALE RQ6H WHILE AWAKE [facility] Last Admin: 02/21/24 15:39 Dose: Not Given Haloperidol (Haloperidol 1 Mg Tablet) 2 mg PO TID PRN PRN Reason: psychosis Haloperidol Lactate (Haloperidol Lactate 5 Mg/Ml Vial) 3 mg IM ONCE PRN PRN Reason: agitation Last Admin: 02/18/24 21:28 Dose: 3 mg Vancomycin HCl 1,000 mg/ (Sodium Chloride) 270 mls @ 270 mls/hr IV Q24H [facility] Last Infusion: 02/20/24 23:20 Dose: Infused Levalbuterol HCl (Levalbuterol Hcl 1.25 Mg/3 Ml Vial.Neb) 1.25 mg INHALE Q3H PRN PRN Reason: Wheezing Last Admin: 02/18/24 10:35 Dose: 1.25 mg Melatonin (Melatonin 3 Mg Tablet) 6 mg PO BEDTIME PRN PRN Reason: Insomnia Last Admin: 02/19/24 20:48 Dose: 6 mg Methylprednisolone Sodium Succinate (Methylprednisolone Sod Succ 40 Mg/Ml Vial) 40 mg IVPUSH Q12H [facility] Last Admin: 02/21/24 12:18 Dose: 40 mg Morphine Sulfate (Morphine Sulfate 4 Mg/Ml Cartridge) 3 mg IVPUSH Q6H PRN; Protocol PRN Reason: Pain, Severe (Pain Scale 7-10) Last Admin: 02/21/24 04:15 Dose: 3 mg Omeprazole (Omeprazole 20 Mg Capsule.Dr) 20 mg PO DAILY@0630 [facility] Last Admin: 02/21/24 05:41 Dose: Not Given Pharmacy Consult (Consult Rx Vancomycin Dosing) 1 each MISCELLANE DAILY PRN PRN Reason: Consult order Sodium Chloride (0.9 % Sodium Chloride Flush 3 Ml Syringe) 3 ml IVFLUSH QSHIFT [facility] Last Admin: 02/21/24 12:18 Dose: 3 ml Trazodone HCl (Trazodone Hcl 50 Mg Tablet) 50 mg PO BID PRN PRN Reason: insomnia/agitation Home Medications ?Medication ?Instructions ?Recorded ?Confirmed ?Type No Known Home Meds 02/17/24 02/17/24 History Allergies Allergy/AdvReac Type Severity Reaction Status Date / Time penicillin V Allergy Unknown Unknown Verified 02/17/24 00:00 Penicillins [PENICILLINS] Allergy Unknown UNKNOWN Verified 02/17/24 00:00 Physical Exam Vital signs: Vital Signs Temp 97.3 F 02/21/24 12:00 Pulse 100 02/21/24 12:00 Resp 20 02/21/24 12:00 BP 116/40 L 02/21/24 12:00 Pulse Ox 98 02/21/24 12:00 O2 Del Method Room Air 02/21/24 12:00 O2 Flow Rate 2 02/21/24 08:00 Intake & Output 02/20/24 02/21/24 02/21/24 18:59 06:59 18:59 Intake Total -3585 / -93256 -6480 / -64867 0 / 0 Output Total 4025 / 6475 2450 / 6475 1500 / 1500 Balance -7610 / -87557 -8930 / -61101 -1500 / -1500 Urine Output (Average ml/kg/hr) 3.11 1.89 1.16 Intake: Intake, Oral Amount 440 / 440 0 / 440 0 / 0 Continuous Bladder Irrigation -4025 / -94190 -7750 / -18415 Fluid - Amount Retained Urethral -4025 / -97925 -7750 / -56520 Intake, IV Amount 1270 / 1270 vancomycin HCL 1,000 mg In 0.9 270 / 270 % Sodium Chloride 250 ml @ 270 mls/hr IV Q24H [facility] Rx#: [id number] Dextrose 5 % 1,000 ml @ 80 mls/ 1000 / 1000 hr IVCONT .[id number] [facility] Rx#: [id number] Output: Output, Urine Amount (Catheter) 4025 / 6475 2450 / 6475 1500 / 1500 Urethral 4025 / 6475 2450 / 6475 1500 / 1500 Other: NPO Yes Breakfast % Eaten 0% 0% Lunch % Eaten 0% 0% Eating (Feeding) Ability 1:1 Feed Independent Number of Bowel Movements 0 Urine Color Punch Bloody Red Tinged Continuous Bladder Irrigation Fluid - Amount Instilled Urethral 3,000 9,000 Continuous Bladder Irrigation Fluid - Amount Drained Urethral 3,200 9,200 Weight 107.8 kg - Constitutional Present: no acute distress - Routine HEENT Exam Head: Present: normal inspection - Routine Neck Exam Absent: lymphadenopathy - Routine Respiratory Exam Absent: stridor, wheezes - Routine Cardiovascular Exam Cardiovascular: Present: S1, S2 - Routine Extremities Exam Comments: Swelling of right upper extremity Hem/Onc Consult Result - Labs CBC & Chem 7: 02/21/24 10:55 02/20/24 08:18 Labs: Short CBC 02/21/24 Range/Units 10:55 WBC 26.4 H (4.8-10.8) X10*3/uL Hgb 11.0 L (14.0-18.0) g/dl Hct 33.6 L (42.0-52.0) % Plt Count 200 (160-400) X10*3/uL Assessment and Plan Patient Active problem list reviewed?: Yes (1) Acute deep vein thrombosis (DVT) of right upper extremity Status: Acute Assessment and plan: 1. This is a 88-year-old admitted after a fall and worsening confusion, underlying dementia was diagnosed with right upper extremity DVT. As per history he was at [facility] in [place] a few weeks ago, no records are available for details. During this admission he was diagnosed with occlusive thrombus in the right upper extremity, thrombus in the right basilic vein and proximal right cephalic vein. He was also found to be in rapid atrial fibrillation, he was briefly on Cardizem for rate control. Heparin was switched to Eliquis. Patient developed hematuria when he pulled his Baltazar catheter. Eliquis is currently on hold. He would be a candidate for anticoagulation both for his DVT as well as atrial fibrillation. If his hematuria resolves in his H&H is stable, consider resuming anticoagulation. Lower dose of Eliquis 5 mg b.i.d. for a week followed by 2.5 mg b.i.d. could be considered given his age and comorbidities and increased risk of bleeding. I thank you for this referral. - Time Spent With Patient Time Spent with Patient (in minutes): 15
[2024-02-21 15:46] VITALS: BP 122/73; PULSE 105; RESP 16; TEMP 36.3; O2SAT 100
--- NOTE | 2024-02-21 16:38 | HO.PM.IMPN ---
Subjective Subjective Date of Service: 02/21/24 Interval History: Patient noted to be lethargic unresponsive this morning received 1 dose of trazodone 50 mg at night in 2 dosages of morphine 3 mg, last dosage make up man. Vitals are stable. Hematuria resolving now light pink urine in Baltazar catheter CBI running. Review of Systems Unable to obtain due to mental status Physical Exam Vital Signs: Vital Signs: Last Vital Signs Temp 97.4 F 02/21/24 15:46 Pulse 105 H 02/21/24 15:46 Resp 16 02/21/24 15:46 BP 122/73 02/21/24 15:46 Pulse Ox 100 02/21/24 15:46 O2 Del Method Nasal Cannula 02/21/24 15:46 O2 Flow Rate 2 02/21/24 15:46 BMI result Body Mass Index 32.2 Const: Other: General this morning not responsive, later in the day open eyes mumbling words Neck no JVD. CVS irregular rate rhythm Respiratory lungs clear to auscultation, no wheeze no respiratory distress Gastrointestinal abdomen soft, non tender, bowel sounds audible, no guarding , no rigidity. Extremities right upper extremity swelling and redness significantly improved. Neuro moving all 4 extremity, speech clear. Skin : DEEP TISSUE INJURY right ear, right lateral shoulder ,and right lower leg Buttocks moisture associated skin damage Noted to have various wounds in various stages of healing Psych poor insight Objective Data Active Medications Acetaminophen (Acetaminophen 325 Mg Tablet) 975 mg PO Q6H PRN PRN Reason: Pain, Mild (Pain Scale 1-3), fever or headache Last Admin: 02/19/24 20:54 Dose: 975 mg Documented By: MARICHUY Albuterol/Ipratropium (Albuterol/Iprat 2.5/0.5mg 3 Ml Ampul.Neb) 3 ml INHALE RQ6H WHILE AWAKE [facility] Last Admin: 02/21/24 15:39 Dose: Not Given Documented By: JUAQUIN Non-Admin Reason: Physician Held Med Haloperidol (Haloperidol 1 Mg Tablet) 2 mg PO TID PRN PRN Reason: psychosis Haloperidol Lactate (Haloperidol Lactate 5 Mg/Ml Vial) 3 mg IM ONCE PRN PRN Reason: agitation Last Admin: 02/18/24 21:28 Dose: 3 mg Documented By: ZIA Vancomycin HCl 1,000 mg/ (Sodium Chloride) 270 mls @ 270 mls/hr IV Q24H [facility] Last Infusion: 02/20/24 23:20 Dose: Infused Documented By: DAVID Levalbuterol HCl (Levalbuterol Hcl 1.25 Mg/3 Ml Vial.Neb) 1.25 mg INHALE Q3H PRN PRN Reason: Wheezing Last Admin: 02/18/24 10:35 Dose: 1.25 mg Documented By: JERAMY Melatonin (Melatonin 3 Mg Tablet) 6 mg PO BEDTIME PRN PRN Reason: Insomnia Last Admin: 02/19/24 20:48 Dose: 6 mg Documented By: MARICHUY Methylprednisolone Sodium Succinate (Methylprednisolone Sod Succ 40 Mg/Ml Vial) 40 mg IVPUSH Q12H [facility] Last Admin: 02/21/24 12:18 Dose: 40 mg Documented By: SRAVANTHI Morphine Sulfate (Morphine Sulfate 4 Mg/Ml Cartridge) 3 mg IVPUSH Q6H PRN; Protocol PRN Reason: Pain, Severe (Pain Scale 7-10) Last Admin: 02/21/24 04:15 Dose: 3 mg Documented By: DAVID Omeprazole (Omeprazole 20 Mg Capsule.) 20 mg PO DAILY@0630 [facility] Last Admin: 02/21/24 05:41 Dose: Not Given Documented By: DAVID Non-Admin Reason: not cooperative Pharmacy Consult (Consult Rx Vancomycin Dosing) 1 each MISCELLANE DAILY PRN PRN Reason: Consult order Sodium Chloride (0.9 % Sodium Chloride Flush 3 Ml Syringe) 3 ml IVFLUSH QSHIFT [facility] Last Admin: 02/21/24 12:18 Dose: 3 ml Documented By: SRAVANTHI Trazodone HCl (Trazodone Hcl 50 Mg Tablet) 50 mg PO BID PRN PRN Reason: insomnia/agitation Labs 02/21/24 10:55 02/20/24 08:18 Labs: Laboratory Results - last 24 hr 02/20/24 02/21/24 19:05 10:55 MCV 101.5 H MCH 33.2 H MCHC 32.7 RDW 16.0 Plt Count 200 MPV 11.3 Immature Gran % (Auto) 4.6 H Neut % (Auto) 84.4 H Lymph % (Auto) 4.5 L [place] % (Auto) 5.8 Eos % (Auto) 0.2 Baso % (Auto) 0.5 Lymph # (Auto) 1.2 [place] # (Auto) 1.5 H Eos # (Auto) 0.0 Baso # (Auto) 0.1 Abs Immat Gran (auto) 1.21 H Absolute Neuts (auto) 22.3 H Absolute Nucleated RBC 0.190 H Nucleated RBC % (auto) 0.7 H Smear Tech's Comments VERIFIED Random Vancomycin 17.6 Microbiology Microbiology Results: Microbiology 02/17/24 00:15 Blood Culture - Preliminary Blood - Venous No growth after 48 hours. Assessment and Plan (1) Dementia: Status: Acute (2) Hematuria: Status: Acute (3) Bacteremia: Status: Acute (4) JOSE ALFREDO (acute kidney injury): Status: Acute (5) Acute deep vein thrombosis (DVT) of right upper extremity: Status: Acute (6) Acute UTI: Status: Acute (7) Atrial fibrillation with RVR: Status: Acute Plan Nikita Hays is 88 y/o man with PMHx significant for dementia admitted with: Acute kidney injury. Likely prerenal secondary to poor p.o. intake of fluids/mild acute rhabdomyolysis (total CK 597)/and due to Obstructive uropathy history of straight catheterization Creatinine normalized, CPK improved from 597-378 Avoid nephrotoxic agents, follow labs. Continue Baltazar catheter placed on admission Acute intermittent asthma exacerbation As per patient he has childhood asthma with intermittent flares Wheezing resolved, wean IV steroids, change updraft to t.i.d., cough medication as needed, stable oxygenation on 2 L, not on home O2 Rapid AFib, with history of atrial fibrillation on xarelto reviewed records from [facility] Tele monitor showed AFib with ventricular rate 90-110 on admission, treated with Cardizem noted to have bradycardia therefore Cardizem discontinued and Eliquis held due to hematuria echocardiogram showed EF greater than 70%, regional wall motion abnormalities not excluded due to suboptimal echocardiogram definition, normal cardiac valves, normal right ventricular systolic pressure left atrium mildly dilated, intra-atrial shunt can not be excluded, no aortic valve stenosis. Remains in AFib with stable ventricular rate. Hypernatremia, likely poor intake of free water, on iv D5W and follow labs Right upper extremity occlusive DVT: Proximal right basilic vein and proximal right cephalic vein, s/p IV heparin infusion, was on Eliquis 10 mg b.i.d. x7 days started on 02/17 followed by 5 mg b.i.d. Eliquis held due to hematuria. Spoke with Elier regarding further treatment she recommend to resume Eliquis 2.5 mg b.i.d. once hematuria resolves and H&H stable will follow consult note Sepsis due to UTI/bacteremia: Acute Lactic acidosis, tachycardia and tachypnea due to sepsis + UTI. Urine culture grew Staphylococcus lugdunensis and, Enterococcus and blood culture 1/2 grew Enterococcus and coagulase-negative Staph ID recommends IV vancomycin total 14 days after 1st negative blood culture Will DC IV ceftriaxone No fevers, likely reactive leukocytosis will follow repeat blood cultures and CBC Class 1 obesity recommend low-calorie diet Unspecified dementia with sundowning and behavioral issues Required soft strains since pulling IV lines and Baltazar catheter, now discontinued Placed on trazodone and Haldol as needed. Continue sitter. History of UGI bleed AND bbpr in October at [facility] continue Prilosec, monitor CBC. Multiple skin wounds on different stages being followed by wound nurse. Spoke with daughter Gissel Xiong, she informed that patient was admitted at [facility] few months ago and he was supposed to be discharged to rehab, but ended up being discharged home, she is not aware of his medical history since he is estranged From family, but informed that he has significant cardiac issues, unable to void and has chronic back pain, he has rapid cognitive decline in last 1 year but not aware of history of dementia. Grandson came to visit, he informed that Gissel Xiong is the daughter and can be reached for concerned although she declined to be healthcare proxy. Reviewed old records from [facility] 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, coronary artery disease, COPD, ZOIE not on CPAP History of atrial flutter on Xarelto patient was admitted at [facility] in October for community-acquired pneumonia, he also developed acute on chronic hypoxic respiratory failure, his course was complicated by delirium with sundowning and agitation require treatment with trazodone he also had an episode of dark brown emesis and bright red blood per rectum gastroenterology was consulted and scope was deferred as low concern for active bleed CT a revealed esophagitis so was started on oral PPI emesis and bright red blood per rectum was resolved with bowel regimen, patient also noted to have episode of gross hematuria after straight catheterization that improved after 40 placement had a normal CT urogram hematuria was thought to be due to possible phos urinary tract creation in the setting of straight catheterization trauma, due to dementia and inability to self-catheterize after a family meeting on 10/12/2023 with a Occupational therapy in geriatric conservatorship was pursued. DVT prophylaxis: Compression boots Code status: Full Patient will need continued inpatient hospitalization for hematuria requiring CBI, treatment for bacteremia on IV antibiotics, and to pursue further treatment for right upper extremity DVT and expert consultation. Quality Stroke Does the patient have a stroke diagnosis?: No VTE Prior VTE?: No VTE Risk Level:: Medical - moderate - high VTE Device Contraindication: Treatment Not Indicated VTE Drug Contraindication: N/A - Med Ordered
[2024-02-21 16:58] LABS: Anion Gap 16 (12-20); Blood Urea Nitrogen 64 mg/dL (9-16); Calcium 8.6 mg/dL (8.4-10.2); Carbon Dioxide 21 mmol/L (22-29); Chloride 110 mmol/L (96-108); Creatinine Clr Calc Pharmacy 17.6; Estimated Glomerular Filt Rate 16; Glucose Random 176 mg/dL (60-115); Potassium 5.3 mmol/L (3.3-5.1); Sodium 142 mmol/L (135-145)
[2024-02-21 19:47] LABS: Vancomycin Random 27.2 mcg/mL (15-20)
[2024-02-21 20:00] VITALS: BP 124/58; PULSE 98; RESP 20; TEMP 36.3; O2SAT 97
[2024-02-21] MEDS: methylPREDNISolone Sod Succ 40 MG/ML VIAL 20 MG IVPUSH (20:07)
[2024-02-22] VITALS (43 sets, daily range): BP systolic 0–211; BP diastolic 0–115; PULSE 68–109; RESP 9–38; TEMP 36.5–36.7; O2SAT 79–97; BMI 26.4
[2024-02-22 06:59] LABS: Hematocrit 33.5 % (42.0-52.0); Hemoglobin 10.9 g/dl (14.0-18.0); Mean Corpuscular HGB Conc 32.5 g/dl (31.0-36.0); Mean Corpuscular Hemoglobin 33.9 pg (27.0-33.0); Mean Platelet Volume 11.6 fL (9.4-12.4); Platelet Count 162 X10*3/uL (160-400); Red Blood Count 3.22 X10*6/uL (4.60-5.80)
[2024-02-22 07:18] LABS: NRBC Pct Auto 2.2 /100WBC (0.0-0.2)
[2024-02-22 08:26] LABS: White Blood Count 47.5 X10*3/uL (4.8-10.8)
[2024-02-22] MEDS: Naloxone HCl 0.4 MG/ML VIAL 0.2 MG IVPUSH (08:34)
[2024-02-22] MEDS: 0.9 % Sodium Chloride 1,000 ML 999 ML IV (08:36)
[2024-02-22 08:37] LABS: Glucose, Whole Blood 139 mg/dL (60-115)
--- NOTE | 2024-02-22 08:47 | MHC.CM.PN ---
RAPID CALLED ON PT, CM CONTACTED DTR PENNIE SALVADOR AT 8:42AM [phone], PENNIE REPORTS SHE HAS BEEN TRYING TO GET IN TOUCH W/HOSPITAL AND IS AGREEABLE TO ASSIST, PENNIE AWARE SHE WILL BE GETTING A CALL FROM [employer] VICE PRESIDENT.
--- NOTE | 2024-02-22 08:48 | PM.EVENT ---
Event Note Date of Service: 02/22/24 Event Note: Called by nurse that pt difficult to obtain blood pressure and o2 saturation and patient looked unwell per notes pt minimally responsive yesterday am, but some improvement in the afternoon at bedside, patient unresponsive to verbal and painful stimuli, noted to have rapid, shallow breaths, skin appears pale. +pulse. rapid response called. did not receive sedating meds overnight.ABG ordered, NS bolus initiated. listed code status as full code discussed with ICU, ICU attending to the bedside, plan for transfer to ICU for further care Time Spent With Patient Time: Total time managing care of this patient today ____ minutes.
[2024-02-22] MEDS: Norepinephrine Bitartrate/D5W 8 MG/250 ML PLAST..BAG 101.06 MG IVCONT (08:56)
--- NOTE | 2024-02-22 09:20 | ECG_ITS ---
Test Reason : change in status Blood Pressure : / mmHG Vent. Rate : 143 BPM Atrial Rate : 000 BPM P-R Int : 000 ms QRS Dur : 082 ms QT Int : 372 ms P-R-T Axes : 000 -58 085 degrees QTc Int : 574 ms Atrial fibrillation with rapid ventricular response with premature ventricular or aberrantly conducted complexes Left axis deviation Nonspecific ST abnormality Abnormal ECG When compared with ECG of 17-FEB-2024 00:04, Previous ECG has undetermined rhythm, needs review Right bundle branch block is no longer Present Criteria for Inferior infarct are no longer Present Referred By: Leonardo Hernandez Electronically Signed By:RENA ARGUELLES MD
[2024-02-22 09:22] LABS: ABG Base Excess -13.5 mmol/L; ABG HCO3 12 mmol/L (22-26); ABG pCO2 29 mmHg (32-45); ABG pH 7.23 (7.35-7.45); ABG pO2 293 mmHg (83-108)
[2024-02-22] MEDS: Sodium Bicarbonate 8.4% 50 MEQ/50 ML SYRINGE 150 MEQ IVPUSH (09:25)
--- NOTE | 2024-02-22 09:45 | PC.RT ---
Rapid response called on 4th floor. Upon RT arrival pt was non-responsive and in respiratory distress, on NC. PT was switched to NRB due to inability to get accurate SAT reading. PT had cyanosis to ears, lips and fingertips. MD ordered ABG. RTs attempted ABG x3 without success due to weak pulse radial and brachial. Pt transferred to ICU on NRB. In ICU pt was listed as full code, RTs requested intubation due to inability to protect airway and inability to oxygenate. MD denied request and ordered HFNC. Pt was placed on HFNC 60L/100% with NRB over it, SATs reading in the 70's. ICU RT took over next interventions.
[2024-02-22 09:53] LABS: Band Neutrophils Percent 10 % (3-5); Lymphocytes Absolute Manual 2.4 X10*3/uL (1.2-4.9); Lymphocytes Percent Manual 5 % (20-40); Macrocytosis 1+ (5-14) /OIF; Monocytes Absolute Manual 1.9 X10*3/uL (0.1-1.2); Monocytes Percent Manual 4 % (2-11); Neutrophils Absolute Manual 43.2 X10*3/uL (2.0-8.3); Neutrophils Percent Manual 81 % (45-73); Nucleated Red Blood Cells 3 /100WBC (0-0); RBC Morphology NOTED
[2024-02-22 09:54] LABS: Hematocrit 24.8 % (42.0-52.0); Hemoglobin 8.5 g/dl (14.0-18.0); Mean Corpuscular HGB Conc 34.3 g/dl (31.0-36.0); Mean Corpuscular Hemoglobin 34.1 pg (27.0-33.0); Mean Corpuscular Volume 99.6 fL (80.0-98.0); Mean Platelet Volume 11.7 fL (9.4-12.4); Platelet Count 154 X10*3/uL (160-400); Red Blood Count 2.49 X10*6/uL (4.60-5.80); Red Cell Distribution Width 15.9 % (11.0-16.0)
[2024-02-22 09:54] LABS: Large Platelet PRESENT; Ovalocytes 1+ (5-14) /OIF; Platelet Estimate SLIGHTLY DECREASED (NORMAL); Platelet Morphology Comment NOTED; Polychromasia 1+ (0-2) /OIF
[2024-02-22 10:02] LABS: D Dimer High Sensitivity 2225 NG/ML
[2024-02-22 10:04] LABS: NRBC Pct Auto 3.4 /100WBC (0.0-0.2)
[2024-02-22] MEDS: 0.9 % Sodium Chloride Flush 3 ML SYRINGE IVFLUSH ×2 (10:06→16:50)
[2024-02-22 10:08] LABS: Anion Gap 25 (12-20); Blood Urea Nitrogen 81 mg/dL (9-16); Carbon Dioxide 20 mmol/L (22-29); Chloride 108 mmol/L (96-108); Creatinine Clr Calc Pharmacy 13.2; Estimated Glomerular Filt Rate 11; Glucose Random 127 mg/dL (60-115); Lactic Acid 11.6 mmol/L (0.5-2.0); Magnesium 2.3 mg/dL (1.6-2.6); Phosphorus 8.4 mg/dL (2.7-4.5); Potassium 6.1 mmol/L (3.3-5.1); Sodium 147 mmol/L (135-145)
[2024-02-22 10:12] LABS: Troponin-I High Sensitivity 72.2 ng/L (<3.5-35.0)
[2024-02-22 10:20] LABS: Band Neutrophils Percent 8 % (3-5); Lymphocytes Absolute Manual 0.8 X10*3/uL (1.2-4.9); Lymphocytes Percent Manual 2 % (20-40); Monocytes Absolute Manual 0.8 X10*3/uL (0.1-1.2); Monocytes Percent Manual 2 % (2-11); Neutrophils Absolute Manual 38.4 X10*3/uL (2.0-8.3); Neutrophils Percent Manual 88 % (45-73); Nucleated Red Blood Cells 8 /100WBC (0-0)
[2024-02-22 10:24] LABS: RBC Morphology NOTED
[2024-02-22 10:25] LABS: Basophilic Stippling 1+ (0-2) /OIF; Macrocytosis 1+ (5-14) /OIF; Ovalocytes 1+ (5-14) /OIF; Platelet Estimate SLIGHTLY DECREASED (NORMAL); Platelet Morphology Comment NORMAL; Polychromasia 1+ (0-2) /OIF
[2024-02-22 11:05] LABS: INTERNATIONAL NORM RATIO 3.5 (0.9-1.1); Prothrombin Time 40.5 SEC (10.9-12.4)
[2024-02-22 11:08] LABS: Partial Thromboplastin Time 28.6 SEC (26.0-36.8)
[2024-02-22] MEDS: methylPREDNISolone Sod Succ 40 MG/ML VIAL 20 MG IVPUSH (11:19)
[2024-02-22] MEDS: Heparin Sodium,Porcine/1/2NS 25,000 UNIT/250 ML IV.SOLN 12.38 UNIT IVCONT (11:30)
--- NOTE | 2024-02-22 11:35 | P.CONCC_ITS ---
History of Present Illness Data of Consult Service Date: 02/22/24 Primary Care Provider: Rashid Physician HPI 88-year-old gentleman with past medical history of dementia, atrial fibrillation, peripheral vascular disease, heart issues who had rapid decline in his mental status over the past year presented to the hospital with unresponsiveness on 02/17/2024. He also had mild JOSE ALFREDO upon admission with creatinine of 1.8 which had improved. He was found to have a right upper extremity DVT for which he was started on therapeutic anticoagulation which had to be stopped as he developed hematuria. Labs were also concerning for leukocytosis that worsened since yesterday, he also developed a new JOSE ALFREDO with creatinine increasing to 3.66 and then to 4 yesterday. A retroperitoneal ultrasound showed increased postvoid residual volume in the bladder so a Baltazar catheter was placed. Patient has been drowsy and difficult to arouse all day yesterday, this morning his pulse was feeble and unable to get blood pressure so a rapid response was called and patient transferred to medical ICU. 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 Tobacco Use Status: Tobacco use Unknown service: Yes Meds Allergies Allergy/AdvReac Type Severity Reaction Status Date / Time penicillin V Allergy Unknown Unknown Verified 02/17/24 00:00 Penicillins [PENICILLINS] Allergy Unknown UNKNOWN Verified 02/17/24 00:00 Active Medications: Current Medications Albuterol/Ipratropium (Albuterol/Iprat 2.5/0.5mg 3 Ml Ampul.Neb) 3 ml INHALE RTID RANDA Last Admin: 02/22/24 07:50 Dose: Not Given Heparin Sodium (Porcine) (Heparin Sodium,Porcine 5,000 Unit/Ml Vial) 3,500 unit 40 unit/kg (3500 unit) IVPUSH PROTOCOL BOLUS PRN; Protocol PRN Reason: 40 unit/kg - Heparin Protocol Heparin Sodium (Porcine) (Heparin Sodium,Porcine 5,000 Unit/Ml Vial) 7,100 unit 80 unit/kg (7100 unit) IVPUSH PROTOCOL BOLUS PRN; Protocol PRN Reason: 80 unit/kg - Heparin Protocol Vancomycin HCl 500 mg/ Sodium (Chloride) 110 mls @ 110 mls/hr IV Q24H RANDA Norepinephrine Bitartrate (Levophed) 8 mg in 250 mls @ 0 mls/hr IVCONT .Q0M RANDA; Protocol Last Titration: 02/22/24 11:18 Dose: 0.21 mcg/kg/min, 42.45 mls/hr Sodium Bicarbonate 150 meq/ (Dextrose) 1,000 mls @ 999 mls/hr IV .Q1H1M ONE Stop: 02/22/24 11:56 Heparin Sodium/Sodium Chloride (Heparin Sodium,Porcine/1/2ns) 25,000 unit in 250 mls @ 0 mls/hr IVCONT .Q0M RANDA; Protocol Last Admin: 02/22/24 11:30 Dose: 14 units/kg/hr, 12.38 mls/hr Dextrose (D10) 250 mls @ 750 mls/hr IV Q15M ONE Stop: 02/22/24 11:41 Levalbuterol HCl (Levalbuterol Hcl 1.25 Mg/3 Ml Vial.Britton) 1.25 mg INHALE Q3H PRN PRN Reason: Wheezing Last Admin: 02/18/24 10:35 Dose: 1.25 mg Methylprednisolone Sodium Succinate (Methylprednisolone Sod Succ 40 Mg/Ml Vial) 20 mg IVPUSH Q12H [facility] Last Admin: 02/22/24 11:19 Dose: 20 mg Omeprazole (Omeprazole 20 Mg Capsule.) 20 mg PO DAILY@0630 [facility] Last Admin: 02/22/24 05:36 Dose: Not Given Pharmacy Consult (Consult Rx Vancomycin Dosing) 1 each MISCELLANE DAILY PRN PRN Reason: Consult order Sodium Chloride (0.9 % Sodium Chloride Flush 3 Ml Syringe) 3 ml IVFLUSH QSHIFT [facility] Last Admin: 02/22/24 10:06 Dose: 3 ml Home Medications ?Medication ?Instructions ?Recorded ?Confirmed ?Last Taken ?Type No Known Home Meds 02/17/24 02/17/24 Unknown History Physical Exam 2 Vital Signs: Vital Signs: Last Vital Signs Temp 98.0 F 02/22/24 08:58 Pulse 91 02/22/24 11:18 Resp 30 H 02/22/24 11:00 BP 97/45 L 02/22/24 11:18 Pulse Ox 81 L 02/22/24 10:00 O2 Del Method BiPAP 02/22/24 11:00 O2 Flow Rate 2 02/22/24 04:00 FiO2 60 02/22/24 11:00 BMI result Body Mass Index 26.4 General: In acute distress, pale and cyanotic Nutritional Appearance: well nourished and overweight Eyes: appearance normal, both eyes and all related structures; Alignment and Position: alignment normal and position normal Neck: No lymphadenopathy, no thyromegaly Resp: bilateral air entry equal, occasional added sounds present Cardio: Regular rate, regular rhythm; Heart sounds: S1 normal heart sound present and S2 normal heart sound present GI: soft, nontender, no guarding, no hepatosplenomegaly : bladder normal to inspection, bladder normal to palpation, no renal angle tenderness Skin: no rashes or lesions noted and elasticity normal Neuro: Unresponsive, no focal deficits Results Labs 02/22/24 09:42 02/22/24 09:42 Labs: Short CBC 02/21/24 02/22/24 02/22/24 Range/Units 10:55 06:21 09:42 WBC 26.4 H 47.5 H* 40.0 H* (4.8-10.8) X10*3/uL Hgb 11.0 L 10.9 L 8.5 L D (14.0-18.0) g/dl Hct 33.6 L 33.5 L 24.8 L D (42.0-52.0) % Plt Count 200 162 154 L (160-400) X10*3/uL BMP 02/21/24 02/22/24 02/22/24 16:27 09:42 09:42 Sodium 142 Cancelled 147 H Potassium 5.3 H D Cancelled Chloride 110 H Carbon Dioxide 21 L BUN 64 H Creatinine 3.66 H Calcium 8.6 02/22/24 02/22/24 02/22/24 09:42 09:42 09:42 Sodium Potassium 6.1 H* Chloride Cancelled 108 Carbon Dioxide Cancelled 20 L BUN Cancelled Creatinine Calcium 02/22/24 02/22/24 02/22/24 09:42 09:42 09:42 Sodium Potassium Chloride Carbon Dioxide BUN 81 H Creatinine Cancelled 4.89 H* Calcium Cancelled 7.0 L D Cardiac Enzymes 02/22/24 Range/Units 09:42 Total Creatine Kinase 414 H (38-174) U/L Microbiology Microbiology Results: Microbiology 02/17/24 00:15 Blood - Venous Blood Culture - Preliminary No growth after 48 hours. 02/17/24 00:33 Blood - Venous Blood Culture - Final Enterococcus faecalis Coag negative Staphylococcus 02/17/24 Unknown Urine clean catch - Clean Catch Midstream Urine Culture - Final Staphylococcus lugdunensis Enterococcus faecalis Assessment and Plan (1) Atrial fibrillation with RVR: Status: Acute (2) Acute deep vein thrombosis (DVT) of right upper extremity: Qualifiers: Affected thrombotic vein of extremity: unspecified vein of extremity Q ualified Code(s): I82.621 - Acute embolism and thrombosis of deep veins of right upper extremity Status: Acute (3) JOSE ALFREDO (acute kidney injury): Status: Acute (4) Acute UTI: Status: Acute (5) Septic shock: Status: Acute (6) Dementia: Status: Acute (7) Acute encephalopathy: Status: Acute (8) Acute lactic acidosis: Status: Acute (9) Hyperkalemia: Status: Acute Plan Acute encephalopathy: Possibly secondary to metabolic encephalopathy setting of uremia; he has underlying dementia with significant decline in cognition over the past year CT head upon it patient showed increased volume losses and chronic ischemic changes Septic shock: Possibly secondary to UTI Lactate level 11, we will repeat a lactate to check for resuscitation Repeat blood cultures has been sent Urine culture grew Staphylococcus lugdunensis and, Enterococcus and blood culture 1/2 grew Enterococcus and coagulase-negative Staph - on vancomycin as per Infectious Disease Acute lactic acidosis: Secondary to shock, we will trend lactate Acute kidney injury: Possibly due to acute drop in hemoglobin from hematuria and also obstructive uropathy as per the ultrasound retroperitoneal Not a candidate for renal replacement therapy given his advanced age, comorbidity and shock avoid nephrotoxic medications and closely monitor I's and O's Acute hyperkalemia: secondary to severe metabolic acidosis and acute kidney injury EKG shows tall T-waves we will do insulin and dextrose, we will repeat BMP in the afternoon Acute blood loss anemia: secondary to hematuria we will closely monitor H&H, we will transfuse if hemoglobin drops below 7 Acute respiratory failure: secondary to severe metabolic acidosis ABG showed a PF ratio of [address] him on BiPAP support to assist with work of breathing right upper extremity DVT: given acute worsening in his respiratory and cardiac status we will start him on heparin drip as he might have embolized to the pulmonary vessels. we will closely monitor for any signs of bleeding prophylaxis; heparin, PPI Had a detailed discussions about his current clinical condition with his daughter Gissel Salazar, Explained her that He has a very poor prognosis given his multiple organ failure, severe JOSE ALFREDO, shock, respiratory failure and encephalopathy. Given his underlying clinical condition including advanced age, dementia it would be less likely that he will survive this event. Patient's daughter understands the scenario and states she does not want to aggressive measures, does not want to put him on life support. She want to change his code status to DNI DNR, she will fly in from [place] after which she will possibly make him comfort care. critical care time spent is about 90 minutes on rapid response, stabilizing the patient, initially he he had a feeble pulse with no blood pressures, stabilizing him to have a stable blood pressure, bedside echo, close hemodynamic monitoring, vasopressor management, managing patient's life- threatening hyperkalemia, managing patient's respiratory status, review of labs and images at this time is excluding any procedural time. Total time managing care of this patient today: 60 minutes.
[2024-02-22] MEDS: Sodium Bicarbonate 8.4% 150 MEQ in Dextrose 5 % 850 ML 999 MEQ IV (11:43)
[2024-02-22 11:45] LABS: Reflex Lactate? Lactic Acid Added
[2024-02-22 12:58] LABS: ABG Base Excess -11.2 mmol/L; ABG HCO3 14 mmol/L (22-26); ABG pCO2 32 mmHg (32-45); ABG pH 7.25 (7.35-7.45); ABG pO2 286 mmHg (83-108)
[2024-02-22] MEDS: Insulin Regular, Human 100 UNIT/ML 10 ML VIAL IVPUSH (13:23)
[2024-02-22] MEDS: Dextrose 10 % 250 ML 750 ML IV (13:24)
[2024-02-22] MEDS: cefEPime HCl/D5W 2 GM/50 ML PIGGYBACK IV (13:25)
[2024-02-22 13:47] LABS: Glucose, Whole Blood 262 mg/dL (60-115)
[2024-02-22] MEDS: Piperacillin Sodium/Tazobactam 2.25 GM in 0.9 % Sodium Chloride 50 ML IV (14:39)
[2024-02-22 14:57] LABS: Hematocrit 24.9 % (42.0-52.0); Hemoglobin 8.2 g/dl (14.0-18.0); Mean Corpuscular HGB Conc 32.9 g/dl (31.0-36.0); Mean Corpuscular Hemoglobin 34.6 pg (27.0-33.0); Mean Corpuscular Volume 105.1 fL (80.0-98.0); Mean Platelet Volume 11.9 fL (9.4-12.4); Platelet Count 136 X10*3/uL (160-400); Red Blood Count 2.37 X10*6/uL (4.60-5.80); Red Cell Distribution Width 16.5 % (11.0-16.0)
[2024-02-22 14:59] LABS: ~Lactic Acid-LAB USE ONLY 17.4 mmol/L (0.5-2.0)
[2024-02-22 15:00] LABS: NRBC Pct Auto 3.1 /100WBC (0.0-0.2); White Blood Count 43.2 X10*3/uL (4.8-10.8)
[2024-02-22 15:01] LABS: Prothrombin Time 59.6 SEC (10.9-12.4)
[2024-02-22 15:04] LABS: PTT Heparin Drip 49.1 SEC (53-77.9)
[2024-02-22 15:14] LABS: INTERNATIONAL NORM RATIO 5.1 (0.9-1.1)
[2024-02-22] MEDS: Albuterol/Iprat 2.5/0.5MG 3 ML AMPUL.NEB INHALE ×2 (15:18→18:42)
[2024-02-22] MEDS: Norepinephrine Bitartrate/D5W 8 MG/250 ML PLAST..BAG 46.49 MG IVCONT (16:16)
[2024-02-22 16:23] LABS: Reflex Lactate? 2 Y
[2024-02-22] MEDS: Sodium Bicarbonate 8.4% 150 MEQ in Dextrose 5 % 850 ML 100 MEQ IV (17:03)
[2024-02-22 17:16] LABS: PTT Heparin Drip 75.2 SEC (53-77.9)
[2024-02-22 17:21] LABS: Vancomycin Random 22.1 mcg/mL (15-20)
--- NOTE | 2024-02-22 17:30 | HE.PHANOTE ---
RE: VANCO DOSING Random came back as 22.1 mg/L, renal function has worsen. Dose is held for 02/22/24. Next random is scheduled for 02/23/24 @0700 and see if renal is improving to determine dose.
[2024-02-22 17:43] LABS: ~Lactic Acid-LAB USE ONLY 18.3 mmol/L (0.5-2.0)
--- NOTE | 2024-02-22 18:02 | W.PM.CCHP ---
Procedures Date of Service Date of Service: 02/22/24 Arterial Line Consent: Emergent-no informed consent obtained Sterile Technique Used: Yes Time out performed: Yes Size (Gauge): 20 Technique used: modified Seldinger technique Post-Procedure: line sutured into place Patient tolerated procedure: well and no complications Complications: none Site: right (axillary)
[2024-02-22] MEDS: fentaNYL citrate/NS 1,000 MCG/100 ML PLAST..BAG 10 MCG IVCONT (19:49)
[2024-02-22] MEDS: Norepinephrine Bitartrate/D5W 8 MG/250 ML PLAST..BAG 97.02 MG IVCONT (19:51)
--- NOTE | 2024-02-22 19:53 | P.ACPN_ITS ---
Advanced Care Planning Note Advanced Care Planning Note Discussed with: family member(s) (pts daughter at bedside, conversation witnessed by the pt's RN Mar) Time spent (in minutes): 20 Narrative: I had a lengthy discussion With the patient's daughter and grandson both of whom are at bedside, she had previously discussed the patient's clinical condition over the phone with . she is aware that his prognosis is poor and is concerned that he may suffer, at this point after reviewing the workup, basic laboratories and answering her questions given that she is a nurse in [place], all questions were answered in detail. 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 doses and will provide the scopolamine for secretions. As discussed in detail with her, the goal is to ensure that the patient passes to a better life in a humane and non suffering way. Critical care time used for critical evaluation of this patient, diagnosis, treatment and coordination of care, review her records and documentation TOTAL CRITICAL CARE TIME 20 MIN . discussion and coordination with consultants, completely separate from any procedures performed. . Patient's care was discussed in detail with Dr. Hernandez. He is aware of all the above as well as the plan of care for this patient. . Problems Discussed (1) Atrial fibrillation with RVR: (2) Acute deep vein thrombosis (DVT) of right upper extremity: (3) JOSE ALFREDO (acute kidney injury): (4) Acute UTI: (5) Septic shock: (6) Dementia: (7) Acute encephalopathy: (8) Acute lactic acidosis: (9) Hyperkalemia:
--- NOTE | 2024-02-22 19:57 | HO.HCP ---
Health Care Proxy Invocation Health Care Proxy Declaration: Joni Owens PAC, on the date cited below, have determined that, Mr Nikita Vivas, lacks the capacity to make or communicate, informed health care decision. This determination is made in accordance with accepted standards of medical judgment and pursuant to [place], the [place] Health Care Proxy Law. The cause, nature, extent and probable duration of the patient's inapacity are described below: Cause: Metabolic encephalopathy Nature: Urinary tract infection and sepsis Extent: Severe Probable Duration of Patient's Incapacity: Indeterminate At this point, all conversations were held with the patient's daughter Gissel Xiong who is now at bedside and has requested to make the patient comfort measures
[2024-02-22] MEDS: Scopolamine 1.5 MG PATCH.TD.3 EAR-BEHIND (20:03)
--- NOTE | 2024-02-22 20:23 | PM.DDS ---
Discharge Sum: Prov Provider Primary care physician: None Physician Consults: 02/20/24 00:58 Consult to Urology Routine Consulting Provider: [facility] [place] [facility] [place] [facility] [facility] Reason for consultation: hematuria 02/20/24 02:07 Consult to Wound Care Routine Reason for consultation: PI right hip staging, recommendations 02/21/24 08:00 Consult to Hematology / Oncology Routine Consulting Provider: [facility] [place] [facility] [place]Hematology Reason for consultation: Rt uppper ext dvt Has provider been notified: No 02/21/24 08:01 Consult to Infectious Diseases Routine Consulting Provider: [facility] [place] [facility] Reason for consultation: gm pos bacteremia Has provider been notified: No Discharge Sum: Diag PCOD Cause of : Septic shock Contributing Factors (1) Atrial fibrillation with RVR: (2) Acute deep vein thrombosis (DVT) of right upper extremity: (3) JOSE ALFREDO (acute kidney injury): (4) Acute UTI: (5) Septic shock: (6) Dementia: (7) Acute encephalopathy: (8) Acute lactic acidosis: (9) Hyperkalemia: Discharge Sum: Summary Date and Time Date of admission: 02/17/24 05:08 Date of : 02/22/24 Time of : 20:25 Summary Details: ADMISSION/DISCHARGE DIAGNOSIS: SEVERE ACUTE ENCEPHALOPATHY UNDERLYING DEMENTIA ACUTE KIDNEY INJURY RIGHT UPPER EXTREMITY DVT SEPTIC SHOCK AND BACTEREMIA UTI LACTIC AND METABOLIC ACIDOSIS HYPERKALEMIA HEMATURIA ANEMIA OF ACUTE BLOOD LOSS WITH MACROCYTOSIS THROMBOCYTOPENIA ACUTE HYPERNATREMIA ATRIAL FIBRILLATION WITH RAPID VENTRICULAR RESPONSE HYPERPHOSPHATEMIA URINARY RETENTION DATE AND TIME OF : 02/22/2024 at 2025pm REASON FOR : ?Multi organ failure in the setting of septic shock and UTI At? 2pm? asystole was noted on the monitor.? At this time, the patient has no heartbeat, no palpable pulses, pupils are fixed at 5 mm bilaterally, overall that anterior chamber and cornea of the eyes appear glossy, no spontaneous breathing.? There is no corneal reflexes bilaterally, capillary refill of the fingers and toes is significantly delayed.? Patient was pronounced by me and time of was at? ?2025pm . Certificate Completed. Organ Center Called by RN.? Total time spent with the patient planning, coordinating, insuring a natural, non suffering and humane passing? as well as pronouncement evaluation, and this documentation was 60 minutes. ?Case was discussed in detail with Dr. Hernandez ICU course of care: Patient had been admitted to the medical floor on 02/17/2024 and transferred to the ICU on 02/22/2024 who has a past medical history of dementia, atrial fibrillation, peripheral vascular disease, heart issues who had rapid decline in his mental status over the past year presented to the hospital with unresponsiveness on 02/17/2024. He also had mild JOSE ALFREDO upon admission with creatinine of 1.8 which had improved. He was found to have a right upper extremity DVT for which he was started on therapeutic anticoagulation which had to be stopped as he developed hematuria. Labs were also concerning for leukocytosis that worsened since yesterday, he also developed a new JOSE ALFREDO with creatinine increasing to 3.66 and then to 4 yesterday. A retroperitoneal ultrasound showed increased postvoid residual volume in the bladder so a Baltazar catheter was placed. Patient has been drowsy and difficult to arouse all day yesterday, this morning his pulse was feeble and unable to get blood pressure so a rapid response was called and patient transferred to medical ICU. While in the ICU, the patient had significant metabolic encephalopathy in addition to his underlying dementia, clearly in septic shock likely due to a UTI with a lactic acid of 11 with urine culture growing staph organisms, Enterococcus and coagulase-negative staph who had been treated with vancomycin per Infectious Disease suggestion, in addition he has acute kidney injury did not improve and at some point developed hematuria which prompted them to stop the heparin drip which had been given in the setting of his upper extremity DVT.? He did have significant work of breathing due to metabolic acidosis and was placed on BiPAP. Lengthy discussion took place with the patient's daughter who is a nursing [place] and flew into the hospital today.? She had also talk to Dr. 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 HPI/hospital course: Patient was admitted to the medical floor on 02/17/2024. Nikita Hays is 88 years old man with past medical history significant for dementia was brought to the ED after his family contacted 911 for a wellness check. The patient well was seen for the last time 2 days ago. Upon entering patient's home it was noted that the patient was lying on the floor and confused. The down time is unclear. Other past medical history is unknown and unclear if patient takes medications everyday. Likely history of PVD as aortic femoral stent noted on hip x-ray. His right arm was noted to be swollen. In the ED, he was found to have tachycardia consistent with rapid AFib. He was also found to have a degree of tachypnea. Other vital signs are normal. It seems like he was placed on supplemental oxygen via nasal cannula for comfort. Blood workup showed no leukocytosis. There is lactic acidosis of 3.3 --> 3.7. Hemoglobin is 18.1 and platelets 256. INR is 1.2. There is mild hypernatremia, 146. No other electrolyte imbalances noted. Total CK is 597. BNP is normal, as well as albumin, lipase and TSH. Urinalysis consistent with UTI. Urine drug screen is negative. ETOH level is < 10. COVID-19 test is negative. Head and C-spine CT scans are unremarkable. CXR is negative. Hip and pelvic x-ray showed partially visualized aortic be femoral stent graft. ED tx: Solu-Medrol 125 mg IV, DuoNeb 10 mg, NS 3 L bolus, metoprolol 5 mg IV, ceftriaxone 1 g IV; from there the patient was admitted to the medical floor and treated for the following conditions before coming to the ICU. Acute kidney injury. Likely secondary to poor p.o. intake of fluids. Early rhabdomyolysis (total CK 597)? Medications? Admit to hospitalist service. Continue IV fluids. Continue to monitor total CK and renal function. Check phosphorus and uric acid. Avoid nephrotoxic agents Rapid AFib, now rate controlled. Receive metoprolol IV. Unclear if patient has underlying AFib. Continue heparin IV infusion. Start metoprolol tartrate 25 mg PO bid. Check TTE. Hypernatremia, likely intake of free water. Continue IV fluids with D5. Continue to monitor Na+ level. Right upper extremity occlusive DVT: Proximal right basilic vein and proximal right cephalic vein . Continue heparin IV infusion per protocol. Lactic acidosis, tachycardia and tachypnea due to sepsis + UTI. Continue IV fluids and empiric IV antibiotic therapy with ceftriaxone. Blood and urine cultures obtained -will follow results. Continue to monitor lactic acid. Possible history of PVD. Presence of aortobifemoral stent on hip x-ray. Additional Data Family: at bedside Attending/PCP notified?: No Attending physician: Leonardo Hernandez MD Was code activated?: No Autopsy requested?: No employment appeals examiner notified?: No Organ bank notified?: Yes Advance directives: Yes Hospice patient?: No
[2024-02-22 21:30] LABS: ABG Refer to POC result
[2024-02-22 21:30] LABS: ABG Refer to POC result
--- NOTE | 2024-02-22 21:35 | PC.NURSE ---
POOL Quinones spoke with family and made pt swiss machinist fent stated at 1950 per PA wait 10 min then shut off meds and take off bipap, family at bedside bipap removed, levo bicarbdrip and heprin shut off at 1999, pt rest eyes closed, TOD 2024, [facility]OD declined REF number [id number]
--- NOTE | 2024-02-22 23:21 | W.PM.IDCN ---
History of Present Illness Data of Consult Service Date: 02/21/24 Requesting physician: Usman Lorenzo Primary Care Provider: None Physician HPI Reason for consult: enterococcus bacteremia He presents with weakness and encephalopathy. He has JOSE ALFREDO. Blood cultures enterococcus. 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 Tobacco Use Status: Tobacco use Unknown service: Yes Meds Allergies Allergy/AdvReac Type Severity Reaction Status Date / Time penicillin V Allergy Unknown Unknown Verified 02/17/24 00:00 Penicillins [PENICILLINS] Allergy Unknown UNKNOWN Verified 02/17/24 00:00 Home Medications ?Medication ?Instructions ?Recorded ?Confirmed ?Last Taken ?Type No Known Home Meds 02/17/24 02/17/24 Unknown History Physical Exam Vital Signs: Vital Signs: Last Vital Signs Temp 98.0 F 02/22/24 08:58 Pulse 99 02/22/24 20:00 Resp 9 L 02/22/24 20:00 BP 102/53 L 02/22/24 20:00 Pulse Ox 81 L 02/22/24 10:00 O2 Del Method BiPAP 02/22/24 19:00 O2 Flow Rate 2 02/22/24 04:00 FiO2 30 02/22/24 19:00 BMI result Body Mass Index 26.4 Const: General: cooperative HEENT: Head: Yes normal to inspection Face and sinus: Yes normal facial exam Mouth: Normal oral and palatal mucosa present Teeth and gingiva: dentition normal Eyes: General: appearance normal, both eyes and all related structures Pupils: Equal, round and reactive pupils present Resp: Effort & Inspection: normal respiratory effort Cardio: Rate: regular rate Rhythm: regular rhythm GI: Palpation (GI): Soft to palpation and nontender : General: Yes no CVA tenderness Back/Spine/Pelvis: Back: no CVA tenderness Skin: General skin exam: no rashes or lesions noted Neuro: General: moves all extremities Cranial nerves: Yes Equal, round and reactive pupils present Extrem: General: Yes normal to inspection Psych: Appearance: grossly normal Results Labs 02/22/24 14:17 02/22/24 09:42 Labs: Short CBC 02/22/24 02/22/24 02/22/24 Range/Units 06:21 09:42 14:17 WBC 47.5 H* 40.0 H* 43.2 H* (4.8-10.8) X10*3/uL Hgb 10.9 L 8.5 L D 8.2 L (14.0-18.0) g/dl Hct 33.5 L 24.8 L D 24.9 L (42.0-52.0) % Plt Count 162 154 L 136 L (160-400) X10*3/uL BMP 02/22/24 02/22/24 02/22/24 09:42 09:42 09:42 Sodium Cancelled 147 H Potassium Cancelled 6.1 H* Chloride Cancelled Carbon Dioxide BUN Creatinine Calcium 02/22/24 02/22/24 02/22/24 09:42 09:42 09:42 Sodium Potassium Chloride 108 Carbon Dioxide Cancelled 20 L BUN Cancelled 81 H Creatinine Cancelled Calcium 02/22/24 02/22/24 09:42 09:42 Sodium Potassium Chloride Carbon Dioxide BUN Creatinine 4.89 H* Calcium Cancelled 7.0 L D Cardiac Enzymes 02/22/24 Range/Units 09:42 Total Creatine Kinase 414 H (38-174) U/L Microbiology Microbiology Results: Microbiology 02/21/24 16:27 Blood - Venous Blood Culture - Preliminary No growth after 24 hours. 02/21/24 16:27 Blood - Venous Blood Culture - Preliminary No growth after 24 hours. 02/17/24 00:15 Blood - Venous Blood Culture - Final No growth after 5 days. 02/17/24 00:33 Blood - Venous Blood Culture - Final Enterococcus faecalis Coag negative Staphylococcus 02/17/24 Unknown Urine clean catch - Clean Catch Midstream Urine Culture - Final Staphylococcus lugdunensis Enterococcus faecalis Procedures Arterial Line Size (Gauge): 20 Assessment and Plan (1) Septic shock: Status: Acute (2) Acute encephalopathy: Status: Acute Plan . He has enterococcus bacteremia Would continue Vancomycin for 14 days from first negative blood culture.
== END 2024-02-22 22:21 | disposition expired | DRG 871 ==
LOC: HO.ED 02-17 03:54 → HO.EDOVER 02-17 05:14 → HO.IMC 02-17 07:57 → HO.ICU 02-22 09:02
PROVIDERS: Hospitalist; Physician Assistant Medical; Student in an Organized Health Care Education/Training Program; Admitting Provider Internal Medicine; Emergency Provider Emergency Medicine; Visit Provider Internal Medicine Critical Care Medicine
DX: A41.9 Sepsis, unspecified organism (principal); G93.41 Metabolic encephalopathy; R65.21 Severe sepsis with septic shock; J96.00 Acute respiratory failure, unspecified whether with hypoxia or hypercapnia; N17.9 Acute kidney failure, unspecified; E87.0 Hyperosmolality and hypernatremia; I82.611 Acute embolism and thrombosis of superficial veins of right upper extremity; M62.82 Rhabdomyolysis; J45.21 Mild intermittent asthma with (acute) exacerbation; E87.21 Acute metabolic acidosis; N39.0 Urinary tract infection, site not specified; F03.918 Unspecified dementia, unspecified severity, with other behavioral disturbance; F05 Delirium due to known physiological condition; D62 Acute posthemorrhagic anemia; N13.8 Other obstructive and reflux uropathy; K20.90 Esophagitis, unspecified without bleeding; N40.1 Benign prostatic hyperplasia with lower urinary tract symptoms; R33.8 Other retention of urine; B95.2 Enterococcus as the cause of diseases classified elsewhere; B95.7 Other staphylococcus as the cause of diseases classified elsewhere; D75.89 Other specified diseases of blood and blood-forming organs; R31.0 Gross hematuria; E87.5 Hyperkalemia; E66.811 Obesity, class 1; Z68.26 Body mass index [BMI] 26.0-26.9, adult; L89.816 Pressure-induced deep tissue damage of head; L89.116 Pressure-induced deep tissue damage of right upper back; L24.A0 Irritant contact dermatitis due to friction or contact with body fluids, unspecified; L89.896 Pressure-induced deep tissue damage of other site; Z71.3 Dietary counseling and surveillance; I73.9 Peripheral vascular disease, unspecified; I48.91 Unspecified atrial fibrillation; Z20.822 Contact with and (suspected) exposure to COVID-19; Z78.1 Physical restraint status; Z79.899 Other long term (current) drug therapy
CPT/HCPCS: 36415; 36600; 70450; 71045; 72125; 73522; 76770; 80048; 80053; 80076; 80202; 80307; 81001; 81003; 82140; 82550; 82565; 82803; 82947; 83605; 83690; 83735; 83880; 84100; 84443; 84484; 84550; 85007; 85025; 85027; 85379; 85610; 85730; 87040; 87077; 87086; 87088; 87186; 87205; 87635; 93005; 93306; 93971; 94640; 94660; 94799; 99285; C1758; J0692; J0696; J1630; J1644; J2060; J2270; J2310; J2543; J2919; J3010; J3370; J3371; Q9957

== ENCOUNTER → 2024-02-16 23:39 | Outpatient (BNV) | payer MEDICARE, SELFPAY | PROVIDERS: Admitting Provider Internal Medicine; Emergency Provider Emergency Medicine; Visit Provider Internal Medicine Cardiovascular Disease | DX: I48.92 Unspecified atrial flutter (principal); I45.10 Unspecified right bundle-branch block | CPT/HCPCS: 93010 ==

== ENCOUNTER 2024-02-17 05:08 | Outpatient (BNV) | payer MEDICARE, SELFPAY | END 2024-02-19 07:00 | PROVIDERS: Admitting Provider Internal Medicine; Emergency Provider Emergency Medicine; Visit Provider Internal Medicine Cardiovascular Disease | DX: I35.8 Other nonrheumatic aortic valve disorders (principal); I34.81 Nonrheumatic mitral (valve) annulus calcification | CPT/HCPCS: 93306 ==

== ENCOUNTER 2024-02-17 05:08 | Outpatient (BNV) | payer MEDICARE, SELFPAY | END 2024-02-22 09:19 | PROVIDERS: Admitting Provider Internal Medicine; Emergency Provider Emergency Medicine; Visit Provider Radiology Diagnostic Radiology | DX: I48.91 Unspecified atrial fibrillation (principal); N17.9 Acute kidney failure, unspecified | CPT/HCPCS: 71045 ==

== ENCOUNTER 2024-02-17 05:08 | Outpatient (BNV) | payer MEDICARE, SELFPAY | END 2024-02-22 09:20 | PROVIDERS: Admitting Provider Internal Medicine; Emergency Provider Emergency Medicine; Visit Provider Internal Medicine Cardiovascular Disease | DX: I48.91 Unspecified atrial fibrillation (principal) | CPT/HCPCS: 93010 ==

== ENCOUNTER → 2024-02-17 05:08 | Outpatient (BNV) | payer MEDICARE, SELFPAY | PROVIDERS: Admitting Provider Internal Medicine; Emergency Provider Emergency Medicine; Visit Provider Internal Medicine Critical Care Medicine | DX: N17.9 Acute kidney failure, unspecified (principal); I82.621 Acute embolism and thrombosis of deep veins of right upper extremity; I48.91 Unspecified atrial fibrillation; N39.0 Urinary tract infection, site not specified | CPT/HCPCS: 36620; 99238; 99291 ==

== ENCOUNTER → 2024-02-17 05:08 | Outpatient (BNV) | payer MEDICARE, SELFPAY | PROVIDERS: Admitting Provider Internal Medicine; Emergency Provider Emergency Medicine; Visit Provider Internal Medicine | DX: I82.611 Acute embolism and thrombosis of superficial veins of right upper extremity (principal) | CPT/HCPCS: 99222 ==

== ENCOUNTER → 2024-02-17 05:08 | Outpatient (BNV) | payer MEDICARE, SELFPAY | PROVIDERS: Admitting Provider Internal Medicine; Emergency Provider Emergency Medicine; Visit Provider Internal Medicine | DX: N17.9 Acute kidney failure, unspecified (principal); I82.621 Acute embolism and thrombosis of deep veins of right upper extremity; F03.90 Unspecified dementia, unspecified severity, without behavioral disturbance, psychotic disturbance, mood disturbance, and anxiety; R31.9 Hematuria, unspecified; R78.81 Bacteremia | CPT/HCPCS: 99223; 99232; 99233; 99499 ==

== ENCOUNTER → 2024-02-17 05:08 | Outpatient (BNV) | payer MEDICARE, SELFPAY | PROVIDERS: Admitting Provider Internal Medicine; Emergency Provider Emergency Medicine; Visit Provider Urology | DX: N17.9 Acute kidney failure, unspecified (principal); N39.0 Urinary tract infection, site not specified; R78.81 Bacteremia; R31.9 Hematuria, unspecified | CPT/HCPCS: 99222 ==

== ENCOUNTER → 2024-02-17 05:08 | Outpatient (BNV) | payer MEDICARE, SELFPAY | PROVIDERS: Admitting Provider Internal Medicine; Emergency Provider Emergency Medicine; Visit Provider Registered Nurse | DX: F29 Unspecified psychosis not due to a substance or known physiological condition (principal); Z13.30 Encounter for screening examination for mental health and behavioral disorders, unspecified | CPT/HCPCS: 99231 ==

== ENCOUNTER → 2024-02-17 05:08 | Outpatient (BNV) | payer MEDICARE, SELFPAY | PROVIDERS: Admitting Provider Internal Medicine; Emergency Provider Emergency Medicine; Visit Provider Internal Medicine | DX: A41.9 Sepsis, unspecified organism (principal); R65.21 Severe sepsis with septic shock; G93.40 Encephalopathy, unspecified | CPT/HCPCS: 99222 ==